=== PATIENT | male | born 1945 | race Caucasian/White ===

== ENCOUNTER 2016-05-30 09:35 | Emergency (ER) | payer OTHER ==
[~2016-05-30] VITALS: Ht 177.8 cm; Wt 113.3 kg
[~2016-05-30 09:35] MED LIST: DOXY100C2 PO; FLUT0.0529 NAE; INSU1INJ7 SC; LEVO88TA3 PO; LORA-741 PO; LOSA25TA18 PO; LPT10 PO; METF-383 PO; TRAM-10 PO
[2016-05-30 09:38] VITALS: BP 159/93; PULSE 78; TEMP 36.4; O2SAT 96; Ht 177.8 cm; Wt 113.3 kg
--- NOTE | 2016-05-30 09:53 | EMERGENCY ROOM VISIT NOTE ---
History Report prepared by Donna: Raghav Naik Under the Supervision of: Dr. Geena Peacock M.D. First contact with patient: 09:42 Chief Complaint: MEDICATION REFILL REQUEST Stated Complaint: REFILL OF MEDICATION History of Present Illness The patient is a 70 year old male who presents to the Emergency Room with a request for a refill of Metformin 850 mg PO. He ran out of his medication today. The patient is in the emergency department today due to a disagreement with his PCP. He then got a new PCP and got more medications, but they denied him a refill of his previous medication. He denies any other complaints. Source of History: patient Onset: today Position: other Quality: other (medication refill) Note: The patient denies any abnormal symptoms. Review of Systems See HPI for pertinent positives & negatives. A total of 10 systems reviewed and were otherwise negative. Past Medical & Surgical Medical Problems: (1) Asthma, Unspecified (2) Diab Savannah Wo Compl, Type Ii Or Unspec Type, Not Uncntrld (3) Hypertension Nos (4) Left leg cellulitis Family History Cancer Diabetes mellitus Social History Smoking Status: Current Every Day Smoker Alcohol Use: occasionally Marital Status: Housing Status: lives with significant other Occupation Status: retired Current/Historical Medications Scheduled Atorvastatin (Atorvastatin Calcium), 10 MG PO DAILY Doxycycline Hyclate (Vibramycin), 100 MG PO BID Fluticasone Propionate (Nasal) (Flonase), 2 SPRAYS OPAL DAILY Insulin Glargine (Lantus), 50 SC AMPM Losartan Potassium (Cozaar), 25 MG PO DAILY Metformin Hcl (Glucophage), 850 MG PO TIDM Scheduled PRN Lorazepam (Ativan), 0.5 MG PO BID PRN for anxiety Tramadol (Ultram), 1 TAB PO Q6H PRN for Pain Miscellaneous Medications Levothyroxine Sodium (Levothyroxine Sodium) Allergies Coded Allergies: Lisinopril (Verified Adverse Reaction, Unknown, Erectile Dysfunction, 02/11) Physical Exam Vital Signs Date Time Temp Pulse Resp B/P Pulse Ox O2 Delivery O2 Flow Rate FiO2 05/30/16 09:38 36.4 78 20 159/93 96 Room Air Physical Exam CONSTITUTIONAL: No distress HEENT: No icterus, moist mucous membranes NECK: No meningismus, trachea is midline. CARDIOVASCULAR: Regular rate, normal perfusion RESPIRATORY: Unlabored breathing. Clear to auscultation. GASTROINTESTINAL: Non-tender GENITOURINARY: No flank tenderness MUSCULOSKELETAL: Full range of motion NEUROLOGIC: No acute gross focal deficits. PSYCHIATRIC: Normal affect SKIN: Normal for ethnicity. Medical Decision & Procedures ED Course 0942: Past medical records reviewed. The patient was evaluated in room A9. A complete history and physical examination was performed. 1000: Upon reexamination the patient is resting. I discussed results and treatment plan with the patient. He verbalizes agreement and understanding. The patient is ready for discharge. Medical Decision Differential diagnoses include but are not limited to; medication refill. 70-year-old presents into the emergency room for medication refill on his metformin. He states he has follow-up with a primary care doctor in June after recently leaving a different primary care doctor but needed an interim assistance. I personally called [email or web address] and for patient's prescription and recently one-month supply. Patient otherwise feels well has no complaints with negative review of systems and understands to follow-up with his primary doctor. Impression Primary Impression: Medication refill Scribe Attestation The scribe's documentation has been prepared under my direction and personally reviewed by me in its entirety. I confirm that the note above accurately reflects all work, treatment, procedures, and medical decision making performed by me. Departure Information Dispostion Home / Self-Care Referrals Kofi Chavez D.O.[facility].Med. (PCP) Forms HOME CARE DOCUMENTATION FORM, IMPORTANT VISIT INFORMATION, WORK / SCHOOL INSTRUCTIONS Patient Instructions A Signature Page, My [facility] Additional Instructions Please f/u with your doctor for future refills
[2016-09-03] MEDS ORDERED: NAPR-1169 PO (08:02)
[2016-09-03] MEDS ORDERED: MULT-506 PO (08:02)
[2016-09-03] MEDS ORDERED: CEPH500C2 PO (08:02)
[2016-09-03] MEDS ORDERED: INSHRIE SC (08:02)
[2016-09-03] MEDS ORDERED: ASPI81TA28 PO (08:02)
[2016-09-03] MEDS ORDERED: ATEN50TA8 PO (08:02)
[2016-09-03] MEDS ORDERED: BUSP5TAB59 PO (08:02)
[2016-09-03] MEDS ORDERED: FLAX10007 PO (08:02)
== END 2016-05-30 09:56 | disposition home or self-care (01) ==
LOC: C.EDB 09:37 → C.EDA 09:56
DX: Z76.0 Encounter for issue of repeat prescription (principal); I10 Essential (primary) hypertension; E11.9 Type 2 diabetes mellitus without complications; J45.909 Unspecified asthma, uncomplicated; F17.200 Nicotine dependence, unspecified, uncomplicated; Z86.19 Personal history of other infectious and parasitic diseases; Z79.4 Long term (current) use of insulin; Z79.899 Other long term (current) drug therapy; Z88.8 Allergy status to other drugs, medicaments and biological substances; Z80.9 Family history of malignant neoplasm, unspecified; Z83.3 Family history of diabetes mellitus

== ENCOUNTER → 2016-06-25 | Outpatient (CLI) | payer OTHER ==
[~2016-06-25] MED LIST changes: +ASPI81TA28 PO; +ATEN50TA8 PO; +BUSP5TAB59 PO; +CEPH500C2 PO; +FLAX10007 PO; +INSHRIE SC; +MULT-506 PO; +NAPR-1169 PO
[2016-06-25 17:47] LABS: ALT/SGPT 37 U/L (12-78); BLOOD UREA NITROGEN 18 mg/dl (7-18); BUN/CREATININE RATIO 16.2 (10-20); CALCIUM 8.3 mg/dl (8.5-10.1); CARBON DIOXIDE 21 mmol/L (21-32); CHLORIDE 112 mmol/L (98-107); CHOLESTEROL 113 mg/dl (0-200); GLUCOSE 176 mg/dl (70-99); POTASSIUM 4.4 mmol/L (3.5-5.1); SODIUM 144 mmol/L (136-145)
[2016-06-25 17:50] LABS: BASO % 0.8 %; BASO ABS # 0.04 K/uL (0-0.2); EOS % 4.2 %; HEMATOCRIT 41.8 % (42-52); IG% 0.2 %; LYMPH % 24.6 %; LYMPH ABS # 1.23 K/uL (1.2-3.4); MEAN CELL VOLUME 96.8 fL (80-100); MEAN CORPUSCULAR HEMOGLOBIN 34.7 pg (25-34); MEAN CORPUSCULAR HGB CONC 35.9 g/dl (32-36); MEAN PLATELET VOLUME 12.1 fL (7.4-10.4); MONO % 6.6 %; NEUT % 63.6 %; PLATELET COUNT 88 K/uL (130-400); RED BLOOD COUNT 4.32 M/uL (4.7-6.1); WHITE BLOOD COUNT 4.99 K/uL (4.8-10.8)
[2016-06-25 17:58] LABS: ALB/GLOB RATIO 1.1 (0.9-2); ALKALINE PHOSPHATASE 65 U/L (45-117); AST/SGOT 32 U/L (15-37); CHOLESTEROL/HDL RATIO 2.4; HDL CHOLESTEROL 47 mg/dl; LDL CHOLESTEROL CALCULATED 38 mg/dl; TRIGLYCERIDES 139 mg/dl (0-150); VERY LOW DENSITY LIPOPROT CALC 28 mg/dl
[2016-06-25 18:06] LABS: COMPLETE YES
[2016-06-26 06:40] LABS: ESTIMATED AVERAGE GLUCOSE 117 mg/dl; HA1C FLAG Normal (Normal)
== END | disposition home or self-care (01) ==
LOC: C.LABBC 14:54
PROVIDERS: ATTEND Family Medicine
DX: E11.9 Type 2 diabetes mellitus without complications (principal); I10 Essential (primary) hypertension; Z13.0 Encounter for screening for diseases of the blood and blood-forming organs and certain disorders involving the immune mechanism; Z11.59 Encounter for screening for other viral diseases

== ENCOUNTER → 2016-06-29 | Outpatient (CLI) | payer OTHER ==
--- NOTE | 2016-06-29 08:25 | DIAGNOSTIC IMAGING REPORT ---
ULTRASOUND OF THE ABDOMINAL AORTA CLINICAL HISTORY: Aneurysm screening. Smoking history. COMPARISON STUDY: No priors. TECHNIQUE: Multiple bill scale, color Doppler, and spectral Doppler sonograms of the abdominal aorta and iliac arteries are performed. Images are reviewed in the transverse and longitudinal planes. The examination is degraded by large body habitus. FINDINGS: There is minimal atherosclerotic irregularity noted throughout the abdominal aorta. The proximal abdominal aorta is not well visualized. The mid abdominal aorta measures 1.9 x 1.8 cm (AP times transverse) and the distal abdominal aorta measures 1.8 x 2.0 cm. The right common iliac artery measures up to 1.4 cm and the left common iliac artery measures up to 1.4 cm. Normal flow and spectral Doppler waveforms are seen within the aorta and pelvic arteries. Velocities within the abdominal aorta measure up to 126 cm/s. IMPRESSION: There is no sonographic evidence of aneurysm in the visualized abdominal aorta. Electronically signed by: Ankur Valencia M.D. 06/29/2016 8:23 AM Dictated Date/Time: 06/29/2016 8:21 AM
== END | disposition home or self-care (01) ==
LOC: C.ULTR 07:58
PROVIDERS: ATTEND Family Medicine
DX: F17.200 Nicotine dependence, unspecified, uncomplicated (principal); Z13.6 Encounter for screening for cardiovascular disorders

== ENCOUNTER → 2016-09-01 | Outpatient (CLI) | payer OTHER ==
[~2016-09-01] MED LIST changes: +INSDGI SC; -TRAM-10 PO
== END | disposition home or self-care (01) ==
LOC: C.LABBC 10:30
PROVIDERS: ATTEND Physician Assistant
DX: L97.909 Non-pressure chronic ulcer of unspecified part of unspecified lower leg with unspecified severity (principal)

== ENCOUNTER → 2016-10-08 | Outpatient (CLI) | payer OTHER ==
[~2016-10-08] MED LIST changes: -CEPH500C2 PO; -DOXY100C2 PO; -LORA-741 PO
[2016-10-08 14:26] LABS: RATIO 7.7 mcg/mg (0-30.0)
== END | disposition home or self-care (01) ==
LOC: C.LABBC 11:22
PROVIDERS: ATTEND Family Medicine
DX: E11.9 Type 2 diabetes mellitus without complications (principal); D69.6 Thrombocytopenia, unspecified

== ENCOUNTER → 2016-11-04 | Outpatient (CLI) | payer OTHER ==
[2016-11-04 13:44] LABS: HEMATOCRIT 40.6 % (42-52); MEAN CELL VOLUME 97.8 fL (80-100); MEAN CORPUSCULAR HGB CONC 34.7 g/dl (32-36); RED BLOOD COUNT 4.15 M/uL (4.7-6.1); WHITE BLOOD COUNT 4.49 K/uL (4.8-10.8)
[2016-11-04 13:56] LABS: MEAN PLATELET VOLUME 11.4 fL (7.4-10.4); PLATELET COUNT 92 K/uL (130-400)
[2016-11-04 14:31] LABS: BASO % 0.4 %; BASO ABS # 0.02 K/uL (0-0.2); COMPLETE YES; EOS % 5.8 %; LYMPH % 25.4 %; LYMPH ABS # 1.14 K/uL (1.2-3.4); MONO % 9.8 %; NEUT % 58.6 %
== END | disposition home or self-care (01) ==
LOC: C.LABBC 11:16
PROVIDERS: ATTEND Family Medicine
DX: D69.6 Thrombocytopenia, unspecified (principal)

== ENCOUNTER → 2017-02-12 | Day surgery (SDC) | payer OTHER ==
[2017-01-27 13:44] VITALS: Ht 177.8 cm; Wt 113.6 kg
[~2017-02-12] VITALS: Ht 177.8 cm; Wt 113.6 kg
[~2017-02-12] MED LIST changes: +LIDOCAINE HCL 2% 2 ML VIAL (20MG/ML) ONE; +MIDAZOLAM HCL 1 MG/ML 2ML VIAL ONE; +PROPOFOL IV EMULSION 10 MG/ML 20 ML VIAL IV ONE
--- NOTE | 2017-02-12 08:45 | Endo History and Physical ---
History & Physical Date of Service: Feb 12, 2017. Chief Complaint: SCREENING Referring Physician: LUIS KIMBROUGH PA-C History of Present Illness 71 yo CM who presents for screening colonoscopy. Past Surgical History Hx Cardiac Surgery: No Hx Internal Defibrillator: No Hx Pacemaker: No Hx Abdominal Surgery: Yes (UMBILICAL HERNIA REPAIR WITH MESH) Hx of Implantable Prosthesis: No Hx Post-Op Nausea and Vomiting: No Hx Cancer Surgery: No Hx Thoracic Surgery: No Hx Orthopedic: No Hx Urinary Tract Surgery: No Family History None Social History Smoking Status: Current Every Day Smoker Hx Substance Use: No Hx Alcohol Use: Yes (1-2 DRINKS/NIGHT) Allergies Coded Allergies: Lisinopril (Verified Adverse Reaction, Unknown, Erectile Dysfunction, ) Current Medications Reported Home Medications Medications Dose Route/Sig Max Daily Dose Days Date Category Dose Instructions Multivitamin (Multivitamins) Tab 1 Tab PO QAM 09/03/16 Reported Flax Seed Oil (Flaxseed (Linseed)) 1,000 Mg Cap 1 Cap PO QAM 09/03/16 Reported Naprosyn (Naproxen) 500 Mg Tab 500 Mg PO BID PRN 09/03/16 Reported Humulin R (Insulin Human Regular) 100 Units/Ml Susp 30 Units SC BID 09/03/16 Reported +SLIDING SCALE Buspirone Hcl 5 Mg Tab 1 Tab PO BID PRN 09/03/16 Reported Tenormin (Atenolol) 50 Mg Tab 50 Mg PO QPM 09/03/16 Reported Aspirin Ec (Aspirin) 81 Mg Tab 81 Mg PO QPM 09/03/16 Reported Glucophage (Metformin Hcl) 850 Mg Tab 850 Mg PO BIDM 11/08/15 Reported Levothyroxine Sodium 88 Mcg Tab 1 Tab PO QAM 11/08/15 Reported Flonase (Fluticasone Propionate (Nasal)) 50 Mcg/Act Spr 2 Sprays OPAL QPM 04/04/14 Reported Atorvastatin Calcium (Atorvastatin) 10 Mg Tab 10 Mg PO QAM 04/04/14 Reported Cozaar (Losartan Potassium) 25 Mg Tab 25 Mg PO QAM 04/04/14 Reported Lantus (Insulin Glargine) 100 Unit/ Inj 40 Units SC AMPM 11/17/11 Reported Vital Signs Weight (Kilograms): 113.64 Height (Feet): 5 Height (Inches): 10 Date Time Temp Pulse Resp B/P (MAP) Pulse Ox O2 Delivery O2 Flow Rate FiO2 02/12/17 08:35 36.8 76 20 151/83 (105) 93 Room Air Physical Exam General Appearance: WD/WN, no apparent distress Respiratory/Chest: Auscultation: breath sounds normal Cardiovascular: Heart Auscultation: RRR Abdomen: Bowel Sounds: normal Inspection & Palpation: soft, non-distended, no tenderness, guarding & rebound Assessment and Plan Assessment: 71 yo CM who presents for screening colonoscopy. Plan: Proceed with colonoscopy.
--- NOTE | 2017-02-12 10:19 | GI REPORT ---
Procedure Date: 02/12/2017 9:49 AM Procedure: Colonoscopy Indications: Screening for colorectal malignant neoplasm Medicines: Monitored Anesthesia Care Complications: No immediate complications. Estimated Blood Loss: Estimated blood loss: none. Procedure: Pre-Anesthesia Assessment: - Prior to the procedure, a History and Physical was performed, and patient medications and allergies were reviewed. The patient's tolerance of previous anesthesia was also reviewed. The risks and benefits of the procedure and the sedation options and risks were discussed with the patient. All questions were answered, and informed consent was obtained. Prior Anticoagulants: The patient has taken aspirin, last dose was 2 days prior to procedure. ASA Grade Assessment: III - A patient with severe systemic disease. After reviewing the risks and benefits, the patient was deemed in satisfactory condition to undergo the procedure. After I obtained informed consent, the scope was passed under direct vision. Throughout the procedure, the patient's blood pressure, pulse, and oxygen saturations were monitored continuously. The scope was introduced through the anus and advanced to the terminal ileum. The colonoscopy was performed without difficulty. The patient tolerated the procedure well. The quality of the bowel preparation was good. The appendiceal orifice and the rectum were photographed. Findings: Four sessile polyps were found in the transverse colon and in the ascending colon. The polyps were 4 to 7 mm in size. These polyps were removed with a hot snare. Resection and retrieval were complete. Multiple small-mouthed diverticula were found in the sigmoid colon. Non-bleeding internal hemorrhoids were found during retroflexion. The hemorrhoids were small. Impression: - Four 4 to 7 mm polyps in the transverse colon and in the ascending colon, removed with a hot snare. Resected and retrieved. - Diverticulosis in the sigmoid colon. - Non-bleeding internal hemorrhoids. Recommendation: - Resume previous diet. - Continue present medications. - Repeat colonoscopy for surveillance based on pathology results. - Return to primary care physician as previously scheduled. Aime Vyas, DO 02/12/2017 10:18:15 AM This report has been signed electronically. Note Initiated On: 02/12/2017 9:49 AM I attest to the content of the Intraoperative Record and orders documented therein, exceptions below
--- NOTE | 2017-02-12 10:22 | Anesthesiology Progress Note ---
Anesthesia Post Op Note Date & Time Feb 12, 2017 at 10:22 Vital Signs Pain Intensity: 0 Vital Signs Past 12 Hours Date Time Temp Pulse Resp B/P (MAP) Pulse Ox O2 Delivery O2 Flow Rate FiO2 02/12/17 10:14 68 20 108/92 (97) 96 Room Air 02/12/17 08:35 36.8 76 20 151/83 (105) 93 Room Air Notes Mental Status: alert / awake / arousable, participated in evaluation Pt Amnestic to Procedure: Yes Nausea / Vomiting: adequately controlled Pain: adequately controlled Airway Patency, RR, SpO2: stable & adequate BP & HR: stable & adequate Hydration State: stable & adequate Anesthetic Complications: no major complications apparent
--- NOTE | 2017-02-12 10:28 | Discharge Instructions ---
Endoscopy Patient Instructions Date / Procedure(s) Performed Feb 12, 2017. Colonoscopy Allergy Information Coded Allergies: Lisinopril (Verified Adverse Reaction, Unknown, Erectile Dysfunction, ) Discharge Date / Findings Feb 12, 2017. Colon polyps Diverticulosis Internal hemorrhoids Medication Instructions Stopped Medication(s): ASPIRIN 02/11/17 OK to resume all medications today as prescribed Reported Home Medications Medications Dose Route/Sig Max Daily Dose Days Date Category Dose Instructions Multivitamin (Multivitamins) Tab 1 Tab PO QAM 09/03/16 Reported Flax Seed Oil (Flaxseed (Linseed)) 1,000 Mg Cap 1 Cap PO QAM 09/03/16 Reported Naprosyn (Naproxen) 500 Mg Tab 500 Mg PO BID PRN 09/03/16 Reported Humulin R (Insulin Human Regular) 100 Units/Ml Susp 30 Units SC BID 09/03/16 Reported +SLIDING SCALE Buspirone Hcl 5 Mg Tab 1 Tab PO BID PRN 09/03/16 Reported Tenormin (Atenolol) 50 Mg Tab 50 Mg PO QPM 09/03/16 Reported Aspirin Ec (Aspirin) 81 Mg Tab 81 Mg PO QPM 09/03/16 Reported Glucophage (Metformin Hcl) 850 Mg Tab 850 Mg PO BIDM 11/08/15 Reported Levothyroxine Sodium 88 Mcg Tab 1 Tab PO QAM 11/08/15 Reported Flonase (Fluticasone Propionate (Nasal)) 50 Mcg/Act Spr 2 Sprays OPAL QPM 04/04/14 Reported Atorvastatin Calcium (Atorvastatin) 10 Mg Tab 10 Mg PO QAM 04/04/14 Reported Cozaar (Losartan Potassium) 25 Mg Tab 25 Mg PO QAM 04/04/14 Reported Lantus (Insulin Glargine) 100 Unit/ Inj 40 Units SC AMPM 11/17/11 Reported Provider Instructions Activity Restrictions - No exercising or heavy lifting for 24 hours. - Do not drink alcohol the day of the procedure. - Do not drive a car or operate machinery until the day after the procedure. - Do not make any important decisions or sign important papers in 24 hours after the procedure. Following Day: - Return to full activity which may include returning to work/school. Diet Start your diet with liquids and light foods (jello, soup, juice, toast). Then eat your usual diet if not nauseated. Treatment For Common After Affects For mild abdominal pain, bloating, or excessive gas: - Rest - Eat lightly - Lie on right side Follow-Up Information Follow-up with LUIS KIMBROUGH PA-C as scheduled Anesthesia Information What You Should Know You have had a procedure that required some medicine to reduce anxiety and discomfort. This treatment is called moderate sedation. After receiving the treatment, you may be sleepy, but you will be able to breathe on your own. The effects of the treatment may last for several hours. Follow these instructions along with Activity/Diet recommendations noted above: * Do NOT do anything where dizziness or clumsiness would be dangerous. * Rest quietly at home today, then you can be up and about tomorrow. * Have a responsible person stay with you the rest of today. * You may have had an I.V. today. If so, you may take the dressing off later today. Recommendations Call your doctor if: * Trouble breathing * Continuous vomiting for more than 24 hours * Temperature above 101 degrees * Severe abdominal pain or bloating * Pain not relieved by pain medicine ordered * There is increased drainage or redness from any incision * A large amount of rectal bleeding greater than 2-3 tablespoons. (If you had a polyp/s removed or have hemorrhoids, a small amount of blood - from the rectum is to be expected.) * You have any unanswered questions or concerns. IN THE EVENT OF A SERIOUS EMERGENCY, GO TO THE NEAREST EMERGENCY ROOM Your discharge instructions were prepared by provider Aime Vyas. Patient Instructions Signature Page Vijay Vishnu Patient (or Guardian) Signature/Date: I have read and understand the instructions given to me by my caregivers. Caregiver/RN/Doctor Signature/Date: The above-named patient and/or guardian has received patient instructions on this date. + Original Patient Signature Page (only) stays with chart. Please make copy for patient.
[2017-02-12 10:45] VITALS: BP 129/55; PULSE 61; O2SAT 97
== END | disposition home or self-care (01) ==
LOC: C.GI 08:14
PROVIDERS: ATTEND Internal Medicine
DX: Z12.11 Encounter for screening for malignant neoplasm of colon (principal); D12.2 Benign neoplasm of ascending colon; D12.3 Benign neoplasm of transverse colon; K64.8 Other hemorrhoids; I10 Essential (primary) hypertension; E11.9 Type 2 diabetes mellitus without complications; K57.31 Diverticulosis of large intestine without perforation or abscess with bleeding; E66.9 Obesity, unspecified; F17.200 Nicotine dependence, unspecified, uncomplicated; Z79.4 Long term (current) use of insulin; Z79.82 Long term (current) use of aspirin

== ENCOUNTER 2017-03-05 16:03 | Emergency (ER) | payer OTHER ==
[~2017-03-05] VITALS: Ht 177.8 cm; Wt 116.4 kg
[~2017-03-05 16:03] MED LIST changes: -INSDGI SC; -LIDOCAINE HCL 2% 2 ML VIAL (20MG/ML) ONE; -MIDAZOLAM HCL 1 MG/ML 2ML VIAL ONE; -PROPOFOL IV EMULSION 10 MG/ML 20 ML VIAL IV ONE
[2017-03-05 16:09] VITALS: BP 144/90; PULSE 84; TEMP 36.9; O2SAT 95; Ht 177.8 cm; Wt 116.4 kg
[2017-03-05] MEDS ORDERED: INSDGI SC (16:53)
--- NOTE | 2017-03-05 17:00 | EMERGENCY ROOM VISIT NOTE ---
ED Visit Note First contact with patient: 16:15 The patient was seen and examined with Sundar Royal PA-C. I agree with the history, physical and findings. Please see the note for disposition and details. The patient has had a rash in his lower extremity for many months. It is not cellulitic. There is no drainage. No abscess. He was given triamcinolone to use twice a day and will have follow-up next week in the primary clinic. He will come back if he worsens.
--- NOTE | 2017-03-05 17:02 | EMERGENCY ROOM VISIT NOTE ---
ED Visit Note First contact with patient: 16:15 CHIEF COMPLAINT: Rash on left lower leg times several months HISTORY OF PRESENT ILLNESS: Patient is a 71-year-old white male who presents to emergency department for evaluation of a rash to his left lower leg. He states that it has been there for "months." He describes it as itchy and painful. He states that the area was a little red, but not problematic, and then he struck his calderon on furniture in his bedroom, which caused a wound, that was poorly healing. He was seen at the wound care center from mid August through almost the end of October for management of the nonhealing wound. Wound healed up well, but the patient states that he had the rash and nothing was done about it for the entire time that he was in by the wound care center. The wound was treated with Aquacel and 1 layer Tubigrip. Patient has tried multiple topical agents including antibiotic ointment and antifungal creams. He is also applying Aquaphor lotion to the area. He states that the area is spreading. He states that it gets worse when he scratches it. He notes symptoms dry, flaking skin centrally. REVIEW OF SYSTEMS: Review of systems as per HPI. All other systems reviewed were negative. At least 6 systems reviewed. PMH: Electronic medical records are reviewed and summarized as above/below. See Problem List. SOCIAL HISTORY: Patient lives at home. PHYSICAL EXAM: Vital Signs: Reviewed Nurse's notes. CONSTITUTIONAL: Patient is a well-appearing 71-year-old white male who is awake and alert and in no acute distress. INTEGUMENTARY: Examination of the left anterior lower leg show a slightly raised, erythematous, blanchable rash. There is an area where there is some scale centrally, which removed easily. No petechiae, vesicles or blistering or bullae appreciated. No satellite lesions. He has 2+ pitting edema noted in the ankles and the pretibial area. The calves are soft and nontender. EMERGENCY DEPARTMENT COURSE: Patient was seen and assessed as above by myself and Dr. Ramos. Etiology of the rash is unclear at this time. Rash does not appear consistent with a bacterial infectious process such as cellulitis. It does not appear to have a fungal component. He has not tried any steroid therapy. He was given a tube of triamcinolone 0.1% cream. He will apply this to the affected area twice daily. He has a follow-up appointment with his PCP for next week. Medication reconciliation: I attest that I have personally reviewed the patient' s current medication list. Blood pressure screening : Patient was found to have normal blood pressure on screening and does not require follow-up. Problem List Medical Problems: (1) Asthma, Unspecified Status: Chronic (2) Diab Savannah Wo Compl, Type Ii Or Unspec Type, Not Uncntrld Status: Chronic (3) Encounter for medication refill Status: Resolved (4) Fever Status: Resolved (5) Hyperlipidemia, Unspecified Status: Chronic (6) Hypertension Nos Status: Chronic (7) Hypothyroidism, Unspecified Status: Chronic (8) Left leg cellulitis Status: Resolved (9) Lyme disease Status: Resolved (10) Medication refill Status: Resolved Current/Historical Medications Scheduled Aspirin (Aspirin Ec), 81 MG PO QPM Atenolol (Tenormin), 50 MG PO QPM Atorvastatin (Atorvastatin Calcium), 10 MG PO QAM Flaxseed (Linseed) (Flax Seed Oil), 1 CAP PO QAM Insulin Glargine (Lantus), 40 UNITS SC AMPM Insulin Human Regular (Humulin R), UNITS SC BID Levothyroxine Sodium (Levothyroxine Sodium), 1 TAB PO QAM Losartan Potassium (Cozaar), 25 MG PO QAM Metformin Hcl (Glucophage), 850 MG PO BIDM Multivitamin (Multivitamin), 1 TAB PO QAM Scheduled PRN Buspirone Hcl (Buspirone Hcl), 1 TAB PO BID PRN for Anxiety Naproxen (Naprosyn), 500 MG PO BID PRN for Pain Allergies Coded Allergies: Lisinopril (Verified Adverse Reaction, Unknown, Erectile Dysfunction, ) Vital Signs Date Time Temp Pulse Resp B/P (MAP) Pulse Ox O2 Delivery O2 Flow Rate FiO2 03/05/17 16:09 36.9 84 18 144/90 95 Room Air Medications Administered Medications (Trade) Dose Ordered Sig/Krystian Route Start Time Stop Time Status Last Admin Dose Admin Triamcinolone Acetonide (Triamcinolone Acet 0.1% Crm) 1 appln BID ONCE EXT 03/05/17 21:00 03/05/17 21:00 DC 03/05/17 17:28 1 APPLN Departure Information Impression Primary Impression: Rash Referrals No Doctor, Assigned (PCP) Patient Instructions My [facility] Additional Instructions Wash area daily with mild soap and water. Apply a thin layer of triamcinolone cream to the affected area twice daily. Follow-up with your primary care provider as you have scheduled next week. Return to the ED for worsening symptoms.
[2017-03-05] MEDS ORDERED: TRIAMCINOLONE ACET 0.1% CR 80 GM TUBE EXT ONE (21:00)
== END 2017-03-05 17:31 | disposition home or self-care (01) ==
LOC: C.EDB 16:03 → C.EDD 17:31
DX: R21 Rash and other nonspecific skin eruption (principal); E78.5 Hyperlipidemia, unspecified; E03.9 Hypothyroidism, unspecified; I10 Essential (primary) hypertension; E11.9 Type 2 diabetes mellitus without complications; J45.909 Unspecified asthma, uncomplicated; Z86.19 Personal history of other infectious and parasitic diseases; Z79.4 Long term (current) use of insulin; Z79.82 Long term (current) use of aspirin; Z79.899 Other long term (current) drug therapy

== ENCOUNTER → 2017-09-24 | Outpatient (CLI) | payer OTHER ==
[~2017-09-24] MED LIST changes: -FLUT0.0529 NAE; +INSDGI SC; -INSU1INJ7 SC
--- NOTE | 2017-09-24 10:07 | DIAGNOSTIC IMAGING REPORT ---
L HAND MIN 3 VIEWS ROUTINE CLINICAL HISTORY: Left first finger pain. COMPARISON: None FINDINGS: Alignment of the left hand is anatomic. There is moderate joint space narrowing with extensive osteophytosis of the interphalangeal joint of the left thumb. There is also moderate arthritis within the left first digit metacarpophalangeal joint. There is no fracture. There is moderate arthritis within several additional articulations of the left hand, including the second and third digit MCP joints. IMPRESSION: 1. 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 Moderate arthritis of the left first metacarpophalangeal joint. 2. No acute fracture. Electronically signed by: Florentino Salomon M.D. 09/24/2017 10:06 AM Dictated Date/Time: 09/24/2017 9:59 AM
[2017-09-24 11:29] LABS: ALBUMIN 3.4 gm/dl (3.4-5.0); ALT/SGPT 46 U/L (12-78); AST/SGOT 46 U/L (15-37); BLOOD UREA NITROGEN 16 mg/dl (7-18); CALCIUM 8.8 mg/dl (8.5-10.1); CARBON DIOXIDE 23 mmol/L (21-32); CREATININE 1.15 mg/dl (0.60-1.40); GLUCOSE 206 mg/dl (70-99); POTASSIUM 4.8 mmol/L (3.5-5.1); SODIUM 137 mmol/L (136-145)
[2017-09-24 11:36] LABS: HEMOGLOBIN A1C 8.8 % (4.5-5.6)
[2017-09-24 11:39] LABS: ALKALINE PHOSPHATASE 80 U/L (45-117); CHOLESTEROL 145 mg/dl (0-200); LDL CHOLESTEROL CALCULATED 65 mg/dl; TOTAL PROTEIN 7.2 gm/dl (6.4-8.2)
== END | disposition home or self-care (01) ==
LOC: C.LABBC 09:00
PROVIDERS: ATTEND Nurse Practitioner Adult Health
DX: M79.645 Pain in left finger(s) (principal); E11.9 Type 2 diabetes mellitus without complications; I10 Essential (primary) hypertension; E78.5 Hyperlipidemia, unspecified; E03.9 Hypothyroidism, unspecified

== ENCOUNTER → 2017-10-06 | Outpatient (CLI) | payer OTHER ==
--- NOTE | 2017-10-06 11:47 | DIAGNOSTIC IMAGING REPORT ---
ULTRASOUND RIGHT UPPER QUADRANT ABDOMEN CLINICAL HISTORY: Elevated hepatic transaminases. COMPARISON STUDY: No priors. TECHNIQUE: Real-time, grayscale, and color flow sonography of the right upper quadrant of the abdomen was performed. Images are reviewed in the transverse and longitudinal planes. The examination is degraded by large body habitus. FINDINGS: Liver: The liver is enlarged, measuring over 22 cm in length. The liver demonstrates heterogeneously increased echotexture consistent with severe hepatic steatosis. Note that this degrades acoustic penetration of liver. There is no intrahepatic biliary ductal dilatation. The main portal vein is patent. Gallbladder: The gallbladder is normal in appearance. No gallstones are identified. There is no gallbladder wall thickening or pericholecystic fluid. A sonographic Landrum's sign is reportedly absent. The common bile duct measures up to 0.5 cm in diameter. Pancreas: Normal well visualized due to overlying bowel gas. Right kidney: Survey images of the right kidney demonstrate normal size and echotexture. There is no hydronephrosis. A 5 mm shadowing nonobstructing calculus is identified in the right lower pole. Ascites: None. IMPRESSION: 1. Hepatomegaly and severe hepatic steatosis. 2. Nonobstructing right renal calculus. 3. No gallstones are identified. Electronically signed by: Ankur Valencia M.D. 10/06/2017 11:46 AM Dictated Date/Time: 10/06/2017 11:45 AM
== END | disposition home or self-care (01) ==
LOC: C.ULTR 11:03
PROVIDERS: ATTEND Nurse Practitioner Adult Health
DX: K76.0 Fatty (change of) liver, not elsewhere classified (principal); N20.0 Calculus of kidney; R74.8 Abnormal levels of other serum enzymes

== ENCOUNTER → 2017-12-10 | Outpatient (CLI) | payer OTHER ==
[~2017-12-10] MED LIST changes: +BUSP-8 PO; +FLUT0.15 NAE; +LEVO100T PO; +METF1000 PO; -NAPR-1169 PO; +NAPR-22 PO; +OMEP20CA9 PO; +OPTIRAY 320 IV PRN
--- NOTE | 2017-12-10 09:22 | DIAGNOSTIC IMAGING REPORT ---
CT (CHEST) THORAX WITH CT DOSE: 858.61 mGy.cm HISTORY: Cough R05 [id number] Former [id number] Abnormal chest [id number] TECHNIQUE: Multiaxial CT images of the chest were performed following the intravenous administration of contrast. A dose lowering technique was utilized adhering to the principles of ALARA. COMPARISON: Chest series 12/01/2017 FINDINGS: The thoracic aorta is normal in course and caliber. Mild stable cardiomegaly. No significant mediastinal or hilar adenopathy. Lungs are considered clear. Minimal bibasilar dependent atelectatic change. No significant parenchymal nodularity. Limited evaluation the upper abdomen demonstrates components of hepatic cirrhosis and upper abdominal varices. IMPRESSION: No significant abnormality identified within the chest. Minimal dependent bibasilar atelectatic change. 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 The above report was generated using voice recognition software. It may contain grammatical, syntax or spelling errors. Electronically signed by: Demetrius Martínez M.D. 12/10/2017 9:21 AM Dictated Date/Time: 12/10/2017 9:00 AM
== END | disposition home or self-care (01) ==
LOC: C.CTS 08:36
PROVIDERS: ATTEND Nurse Practitioner Adult Health
DX: R93.8 Abnormal findings on diagnostic imaging of other specified body structures (principal); Z87.891 Personal history of nicotine dependence; R05 Cough

== ENCOUNTER → 2017-12-21 | Day surgery (SDC) | payer OTHER ==
[2017-12-20 08:38] VITALS: BMI 35.0
[~2017-12-21] VITALS: Ht 177.8 cm; Wt 111.4 kg
[~2017-12-21] MED LIST changes: +FENTANYL CITRATE INJ 50 MCG/1 ML 2 ML VIAL ONE; -LEVO88TA3 PO; +LIDOCAINE HCL 2% 2 ML VIAL (20MG/ML) ONE; -METF-383 PO; -NAPR-22 PO; -OMEP20CA9 PO; -OPTIRAY 320 IV PRN; +PROPOFOL IV EMULSION 10 MG/ML 20 ML VIAL ONE; +SODIUM CHLORIDE 0.9% 500ML 500 ML IV ONE
[2017-12-21 11:21] VITALS: Ht 177.8 cm; Wt 111.4 kg
[2017-12-21 11:31] VITALS: TEMP 37
--- NOTE | 2017-12-21 12:12 | Endo History and Physical ---
History & Physical Date of Service: Dec 21, 2017. Chief Complaint: hx varices Referring Physician: BHAVESH Rushing History of Present Illness 72 yo CM who presents for EGD secondary to gastric varices. Past Surgical History Hx Cardiac Surgery: No Hx Internal Defibrillator: No Hx Pacemaker: No Hx Abdominal Surgery: Yes (UMBILICAL HERNIA REPAIR WITH MESH) Hx of Implantable Prosthesis: No Hx Post-Op Nausea and Vomiting: No Hx Cancer Surgery: No Hx Thoracic Surgery: No Hx Orthopedic: No Hx Urinary Tract Surgery: No Family History None Social History Smoking Status: Former Smoker Hx Substance Use: No Hx Alcohol Use: Yes (1-2 DRINKS/NIGHT (QUIT ONE MONTH AGO)) Allergies Coded Allergies: Lisinopril (Verified Adverse Reaction, Unknown, Erectile Dysfunction, 12/20) Current Medications Reported Home Medications Medications Dose Route/Sig Max Daily Dose Days Date Category Dose Instructions Flonase Allergy Relief (Fluticasone Propionate (Nasal)) 50 Mcg/Act Spr 2 Sprays OPAL DAILY 12/12/17 Reported Buspirone Hcl 10 Mg Tab 10 Mg PO BID 12/12/17 Reported STATES HE DOES NOT TAKE ALL THE TIME Glucophage (Metformin Hcl) 1,000 Mg Tab 1,000 Mg PO BIDM 12/12/17 Reported Synthroid (Levothyroxine Sodium) 100 Mcg Tab 100 Mcg PO QAM 12/12/17 Reported Lantus (Insulin Glargine) 100 Unit/Ml Inj 45 Units SC BID 03/05/17 Reported Multivitamin (Multivitamins) Tab 1 Tab PO QAM 09/03/16 Reported Flax Seed Oil (Flaxseed (Linseed)) 1,000 Mg Cap 1 Cap PO QAM 09/03/16 Reported Humulin R (Insulin Human Regular) 100 Units/Ml Susp 20-40 Units SC BID 09/03/16 Reported PER SLIDING SCALE Buspirone Hcl 5 Mg Tab 5 Mg PO BID PRN 09/03/16 Reported Tenormin (Atenolol) 50 Mg Tab 50 Mg PO QPM 09/03/16 Reported Aspirin Ec (Aspirin) 81 Mg Tab 81 Mg PO QPM 09/03/16 Reported Lipitor (Atorvastatin Calcium) 10 Mg Tab 10 Mg PO QAM 04/04/14 Reported Cozaar (Losartan Potassium) 25 Mg Tab 25 Mg PO QAM 04/04/14 Reported Vital Signs Weight (Kilograms): 111.36 Height (Feet): 5 Height (Inches): 10 Date Time Temp Pulse Resp B/P (MAP) Pulse Ox O2 Delivery O2 Flow Rate FiO2 12/21/17 11:31 37 62 20 130/73 (92) 95 Room Air Physical Exam General Appearance: WD/WN, no apparent distress Respiratory/Chest: Auscultation: breath sounds normal Cardiovascular: Heart Auscultation: RRR Abdomen: Bowel Sounds: normal Inspection & Palpation: soft, non-distended, no tenderness, guarding & rebound Assessment and Plan Assessment: 72 yo CM who presents for EGD secondary to gastric varices. Plan: Proceed with colonoscopy.
--- NOTE | 2017-12-21 13:08 | Discharge Instructions ---
Endoscopy Patient Instructions Date / Procedure(s) Performed Dec 21, 2017. EGD Allergy Information Coded Allergies: Lisinopril (Verified Adverse Reaction, Unknown, Erectile Dysfunction, 12/20) Discharge Date / Findings Dec 21, 2017. Duodenal ulcers Gastritis s/p biopsies Medication Instructions Stopped Medication(s): TOOK NOTHING OK to resume all medications today as prescribed Reported Home Medications Medications Dose Route/Sig Max Daily Dose Days Date Category Dose Instructions Flonase Allergy Relief (Fluticasone Propionate (Nasal)) 50 Mcg/Act Spr 2 Sprays OPAL DAILY 12/12/17 Reported Buspirone Hcl 10 Mg Tab 10 Mg PO BID 12/12/17 Reported STATES HE DOES NOT TAKE ALL THE TIME Glucophage (Metformin Hcl) 1,000 Mg Tab 1,000 Mg PO BIDM 12/12/17 Reported Synthroid (Levothyroxine Sodium) 100 Mcg Tab 100 Mcg PO QAM 12/12/17 Reported Lantus (Insulin Glargine) 100 Unit/Ml Inj 45 Units SC BID 03/05/17 Reported Multivitamin (Multivitamins) Tab 1 Tab PO QAM 09/03/16 Reported Flax Seed Oil (Flaxseed (Linseed)) 1,000 Mg Cap 1 Cap PO QAM 09/03/16 Reported Humulin R (Insulin Human Regular) 100 Units/Ml Susp 20-40 Units SC BID 09/03/16 Reported PER SLIDING SCALE Buspirone Hcl 5 Mg Tab 5 Mg PO BID PRN 09/03/16 Reported Tenormin (Atenolol) 50 Mg Tab 50 Mg PO QPM 09/03/16 Reported Aspirin Ec (Aspirin) 81 Mg Tab 81 Mg PO QPM 09/03/16 Reported Lipitor (Atorvastatin Calcium) 10 Mg Tab 10 Mg PO QAM 04/04/14 Reported Cozaar (Losartan Potassium) 25 Mg Tab 25 Mg PO QAM 04/04/14 Reported Provider Instructions Activity Restrictions - No exercising or heavy lifting for 24 hours. - Do not drink alcohol the day of the procedure. - Do not drive a car or operate machinery until the day after the procedure. - Do not make any important decisions or sign important papers in 24 hours after the procedure. Following Day: - Return to full activity which may include returning to work/school. Diet Start your diet with liquids and light foods (jello, soup, juice, toast). Then eat your usual diet if not nauseated. Treatment For Common After Affects For mild abdominal pain, bloating, or excessive gas: - Rest - Eat lightly - Lie on right side Follow-Up Information Follow-up with BHAVESH Rushing as scheduled Anesthesia Information What You Should Know You have had a procedure that required some medicine to reduce anxiety and discomfort. This treatment is called moderate sedation. After receiving the treatment, you may be sleepy, but you will be able to breathe on your own. The effects of the treatment may last for several hours. Follow these instructions along with Activity/Diet recommendations noted above: * Do NOT do anything where dizziness or clumsiness would be dangerous. * Rest quietly at home today, then you can be up and about tomorrow. * Have a responsible person stay with you the rest of today. * You may have had an I.V. today. If so, you may take the dressing off later today. Recommendations Call your doctor if: * Trouble breathing * Continuous vomiting for more than 24 hours * Temperature above 101 degrees * Severe abdominal pain or bloating * Pain not relieved by pain medicine ordered * There is increased drainage or redness from any incision * A large amount of rectal bleeding greater than 2-3 tablespoons. (If you had a polyp/s removed or have hemorrhoids, a small amount of blood - from the rectum is to be expected.) * You have any unanswered questions or concerns. IN THE EVENT OF A SERIOUS EMERGENCY, GO TO THE NEAREST EMERGENCY ROOM Your discharge instructions were prepared by provider Aime Vyas. Patient Instructions Signature Page Vijay Mares Patient (or Guardian) Signature/Date: I have read and understand the instructions given to me by my caregivers. Caregiver/RN/Doctor Signature/Date: The above-named patient and/or guardian has received patient instructions on this date. + Original Patient Signature Page (only) stays with chart. Please make copy for patient.
--- NOTE | 2017-12-21 13:14 | GI REPORT ---
Patient Name: Vijay Mares Procedure Date: 12/21/2017 12:09 PM Date of : 1945 Admit Type: Outpatient Age: 72 Gender: Male Attending MD: Aime Vyas DO Procedure: Upper GI endoscopy Providers: Aiem Vyas DO Referring MD: Martha Reynoso Indications: Abnormal CT of the GI tract Medicines: Monitored Anesthesia Care Complications: No immediate complications. Estimated Blood Loss: Estimated blood loss: none. Procedure: Pre-Anesthesia Assessment: - Prior to the procedure, a History and Physical was performed, and patient medications and allergies were reviewed. The patient's tolerance of previous anesthesia was also reviewed. The risks and benefits of the procedure and the sedation options and risks were discussed with the patient. All questions were answered, and informed consent was obtained. Prior Anticoagulants: The patient has taken aspirin, last dose was 1 day prior to procedure. ASA Grade Assessment: III - A patient with severe systemic disease. After reviewing the risks and benefits, the patient was deemed in satisfactory condition to undergo the procedure. After obtaining informed consent, the endoscope was passed under direct vision. Throughout the procedure, the patient's blood pressure, pulse, and oxygen saturations were monitored continuously. The scope was introduced through the mouth, and advanced to the second part of duodenum. The upper GI endoscopy was accomplished without difficulty. The patient tolerated the procedure well. Findings: The esophagus was normal. Localized mild inflammation characterized by erythema was found in the gastric antrum. Biopsies were taken with a cold forceps for histology. Few non-bleeding superficial duodenal ulcers with no stigmata of bleeding were found in the duodenal bulb. The largest lesion was 10 mm in largest dimension. Impression: - Normal esophagus. - Gastritis. Biopsied. - Multiple non-bleeding duodenal ulcers with no stigmata of bleeding. Recommendation: - Resume previous diet. - Use Prilosec (omeprazole) 20 mg PO BID. - Await pathology results. - Return to primary care physician as previously scheduled. Aime Vyas DO 12/21/2017 1:13:37 PM This report has been signed electronically. Note Initiated On: 12/21/2017 12:09 PM Number of Addenda: 0 I attest to the content of the Intraoperative Record and orders documented therein, exceptions below {[id number]}
[2017-12-21 13:40] VITALS: BP 137/73; PULSE 55; O2SAT 95
--- NOTE | 2017-12-21 14:04 | Anesthesiology Progress Note ---
Anesthesia Post Op Note Date & Time Dec 21, 2017 at 14:04 Vital Signs Pain Intensity: 0 Vital Signs Past 12 Hours Date Time Temp Pulse Resp B/P (MAP) Pulse Ox O2 Delivery O2 Flow Rate FiO2 12/21/17 13:40 55 20 137/73 (94) 95 Room Air 12/21/17 13:34 49 20 148/91 (110) 95 Room Air 12/21/17 13:13 50 20 144/78 (100) 97 Room Air 12/21/17 11:31 37 62 20 130/73 (92) 95 Room Air Notes Mental Status: alert / awake / arousable, participated in evaluation Pt Amnestic to Procedure: Yes Nausea / Vomiting: adequately controlled Pain: adequately controlled Airway Patency, RR, SpO2: stable & adequate BP & HR: stable & adequate Hydration State: stable & adequate Anesthetic Complications: no major complications apparent
== END | disposition home or self-care (01) ==
LOC: C.GI 11:00
PROVIDERS: ATTEND Internal Medicine
DX: R93.3 Abnormal findings on diagnostic imaging of other parts of digestive tract (principal); K29.50 Unspecified chronic gastritis without bleeding; K26.9 Duodenal ulcer, unspecified as acute or chronic, without hemorrhage or perforation; I10 Essential (primary) hypertension; E11.9 Type 2 diabetes mellitus without complications; E78.5 Hyperlipidemia, unspecified; E03.9 Hypothyroidism, unspecified; F41.8 Other specified anxiety disorders; F32.9 Major depressive disorder, single episode, unspecified; Z87.891 Personal history of nicotine dependence; Z79.84 Long term (current) use of oral hypoglycemic drugs; Z79.4 Long term (current) use of insulin; Z79.899 Other long term (current) drug therapy; Z88.8 Allergy status to other drugs, medicaments and biological substances

== ENCOUNTER 2018-01-15 14:31 | Emergency (ER) | payer OTHER ==
[~2018-01-15] VITALS: Ht 177.8 cm; Wt 115.6 kg
[~2018-01-15 14:31] MED LIST changes: -FENTANYL CITRATE INJ 50 MCG/1 ML 2 ML VIAL ONE; -LIDOCAINE HCL 2% 2 ML VIAL (20MG/ML) ONE; -PROPOFOL IV EMULSION 10 MG/ML 20 ML VIAL ONE; -SODIUM CHLORIDE 0.9% 500ML 500 ML IV ONE
[2018-01-15 14:53] VITALS: PULSE 63; TEMP 36.9; O2SAT 94; Ht 177.8 cm; Wt 115.6 kg
[2018-01-15] MEDS ORDERED: DICLOFENAC SOD 1% GEL 100 GM TUBE EXT STA (15:14)
--- NOTE | 2018-01-15 15:29 | EMERGENCY ROOM VISIT NOTE ---
ED Visit Note First contact with patient: 15:01 CHIEF COMPLAINT: Right upper extremity pain HISTORY OF PRESENT ILLNESS: This 72-year-old male patient presents to the emergency department, ambulatory, complaining of right upper arm soreness and redness since "weeks ago". The patient states he was here in the hospital when a nurse was unable to obtain IV access in the right upper extremity. He states there were several attempts made and he finally told the nurse to stop trying and insert the IV on the left. The patient did not ever have IV access established, and did not have any medications or fluids run through the IV. He states the redness of the extremity comes and goes, and earlier today it was much worse than it is at this time. There has been no drainage, and he states the redness does not seem to be spreading. He denies any recent fever, chills, nausea, vomiting, aches, or other constitutional symptoms. The patient has never experienced symptoms like this before. He did see his primary care provider proximally 1 month ago and had an ultrasound performed outpatient which was consistent with superficial phlebitis of the cephalic vein. REVIEW OF SYSTEMS: A 10 system review of systems was performed with positives and pertinent negatives listed in the history of present illness. All other systems were reviewed and are negative. ALLERGIES: Lisinopril MEDICATIONS: "A bunch, I don't know their names" PMH: Diabetes, heart disease, anxiety, hyperlipidemia SOCIAL HISTORY: The patient lives locally with family. He denies drug, alcohol , tobacco use. PHYSICAL EXAM: VITALS: Vitals are noted on the nurse's note and reviewed by myself. Vital signs stable. GENERAL: This is a 72-year-old white male, in no acute distress, nondiaphoretic , well-developed well-nourished. SKIN: Slight erythema in the anterior aspect of the proximal right upper extremity extending from the antecubital space to the mid humerus. There is no fluctuance or purulence. No drainage. No significant edema. Palpable cord within the right upper extremity. Otherwise, no ecchymosis, bruising, swelling , excoriations, or other skin lesions. NEXT: Supple. No lymphadenopathy. HEART: Regular rate and rhythm. No murmurs, gallops, rubs LUNGS: CTA bilaterally. No wheezes, rhonchi, rales. MUSCULOSKELETAL: Full range of motion of the right upper extremity. There is mild tenderness to palpation of the mid humerus. There is full range of motion at the shoulder and elbow. Strength 5/5. Distal pulses 2+. RADIOLOGY: VENOUS DOPPLER ULTRASOUND THE RIGHT UPPER EXTREMITY CLINICAL HISTORY: Right upper extremity redness, swelling. History of phlebitis. COMPARISON STUDY: No previous studies for comparison. FINDINGS: No intraluminal thrombus was visualized, within the internal jugular, subclavian, axillary, brachial, basilic, radial or ulnar veins. There is extensive thrombus within the cephalic vein extending from the mid clavicular level to the mid forearm.. IMPRESSION: 1. Extensive cephalic vein thrombus extending from the mid forearm to the clavicular level 2. No evidence of thrombus within the deep system proper Electronically signed by: Kvng Lynch M.D. 01/15/2018 5:42 PM Dictated Date/Time: 01/15/2018 5:39 PM EMERGENCY DEPARTMENT COURSE: The patient seen and evaluated as above. Ultrasound performed to rule out worsening phlebitis or DVT given the patient's symptoms. I did speak with the radiologist after review of ultrasound and he did compare the images to previous ultrasound performed approximately 1 month ago. He states there is no significant change noted. I discussed the findings with the patient at bedside. Because of his history of gastric ulcers while taking aspirin, I recommended topical NSAIDs and close follow-up with hematology. The patient verbalized agreement and understanding. I did discuss the case with my attending, who did see and evaluate the patient. All questions answered patient satisfaction prior to discharge. Discharge instructions reviewed, patient was discharged home in good condition. I attest that I have personally reviewed the patient's current medication list. Patient was found to have normal blood pressure on screening and does not require follow-up. Etiologies such as superficial phlebitis, cellulitis, abscess, DVT, joint effusion, infection, trauma, muscular, lymphedema, idiopathic, CHF, as well as others were entertained. DIAGNOSIS: Superficial phlebitis of the right upper extremity The chart was completed utilizing [employer] voice recognition software. Grammatical errors, random word insertions, pronoun errors, and incomplete sentences are an occasional consequence of this system due to software limitations, ambient noise, and hardware issues. Any formal questions or concerns about the content, text, or information contained within the body of this dictation should be directly addressed to the provider for clarification. Problem List Medical Problems: (1) Asthma, Unspecified Status: Chronic (2) Diab [place] Wo Compl, Type Ii Or Unspec Type, Not Uncntrld Status: Chronic (3) Encounter for medication refill Status: Resolved (4) Fever Status: Resolved (5) Hyperlipidemia, Unspecified Status: Chronic (6) Hypertension Nos Status: Chronic (7) Hypothyroidism, Unspecified Status: Chronic (8) Left leg cellulitis Status: Resolved (9) Lyme disease Status: Resolved (10) Medication refill Status: Resolved Current/Historical Medications Scheduled Aspirin (Aspirin Ec), 81 MG PO QPM Atenolol (Tenormin), 50 MG PO QPM Atorvastatin (Lipitor), 10 MG PO QAM Buspirone Hcl (Buspirone Hcl), 10 MG PO BID Flaxseed (Linseed) (Flax Seed Oil), 1 CAP PO QAM Fluticasone Propionate (Nasal) (Flonase Allergy Relief), 2 SPRAYS OPAL DAILY Insulin Glargine (Lantus), 45 UNITS SC BID Insulin Human Regular (Humulin R), 20-40 UNITS SC BID Levothyroxine Sodium (Synthroid), 100 MCG PO QAM Losartan Potassium (Cozaar), 25 MG PO QAM Metformin Hcl (Glucophage), 1,000 MG PO BIDM Multivitamin (Multivitamin), 1 TAB PO QAM Scheduled PRN Buspirone Hcl (Buspirone Hcl), 5 MG PO BID PRN for Anxiety Allergies Coded Allergies: Lisinopril (Verified Adverse Reaction, Unknown, Erectile Dysfunction, 12/20) Vital Signs Date Time Temp Pulse Resp B/P (MAP) Pulse Ox O2 Delivery O2 Flow Rate FiO2 01/15/18 17:42 149/80 01/15/18 14:53 36.9 63 18 113/72 94 Room Air Medications Administered Medications (Trade) Dose Ordered Sig/Krystian Route Start Time Stop Time Status Last Admin Dose Admin Diclofenac Sodium (Voltaren 1% Top Gel) 1 appln NOW STAT EXT 01/15/18 15:14 01/15/18 15:16 DC 01/15/18 15:50 1 APPLN Departure Information Impression Primary Impression: Phlebitis of superficial vein of upper extremity Dispostion Home / Self-Care Condition GOOD Referrals Martha Alexander CRNP (PCP) Lumadue,Fozia A., M.D., PHD Patient Instructions ED Phlebitis Superficial, My [facility] Additional Instructions You were seen in the ED today for superficial phlebitis/clot of the right upper extremity. Use the Voltaren gel four times per day to help with pain and inflammation. Acetaminophen(Tylenol) may be used for fever or pain. Use 1000mg every six hours as needed. Avoid using more than 3000mg in a 24 hour period. Follow-up with Dr. Power, hematology, for further evaluation and management of the clot. Return to the ED for worsening pain, swelling, redness, numbness/tingling, fever , body aches, purulent drainage, or other concerning symptoms.
[2018-01-15 17:42] VITALS: BP 149/80
--- NOTE | 2018-01-15 17:43 | DIAGNOSTIC IMAGING REPORT ---
VENOUS DOPPLER ULTRASOUND THE RIGHT UPPER EXTREMITY CLINICAL HISTORY: Right upper extremity redness, swelling. History of phlebitis. COMPARISON STUDY: No previous studies for comparison. FINDINGS: No intraluminal thrombus was visualized, within the internal jugular, subclavian, axillary, brachial, basilic, radial or ulnar veins. There is extensive thrombus within the cephalic vein extending from the mid clavicular level to the mid forearm.. IMPRESSION: 1. Extensive cephalic vein thrombus extending from the mid forearm to the clavicular level 2. No evidence of thrombus within the deep system proper Electronically signed by: Kvng Lynch M.D. 01/15/2018 5:42 PM Dictated Date/Time: 01/15/2018 5:39 PM
--- NOTE | 2018-01-15 18:17 | EMERGENCY ROOM VISIT NOTE ---
ED Visit Note First contact with patient: 15:01 Patient seen and examined at bedside after discussion with physician virtual customer assistant. Imaging reviewed. Patient unable to use anti-inflammatories due to history of peptic ulcer disease and GI bleed. Discussed with patient close follow-up with family doctor, symptoms to watch and return for, he verbalized understanding was agreeable to plan.
== END 2018-01-15 18:20 | disposition home or self-care (01) ==
LOC: C.EDB 14:33 → C.EDD 18:20
DX: I80.8 Phlebitis and thrombophlebitis of other sites (principal); E11.9 Type 2 diabetes mellitus without complications; I51.9 Heart disease, unspecified; F41.9 Anxiety disorder, unspecified; E78.5 Hyperlipidemia, unspecified; J45.909 Unspecified asthma, uncomplicated; I10 Essential (primary) hypertension; E03.9 Hypothyroidism, unspecified; Z88.8 Allergy status to other drugs, medicaments and biological substances

== ENCOUNTER 2020-05-27 17:27 | Observation (INO) ==
[2020-05-27] MEDS ORDERED: LORazepam 2 MG/4 ML VIAL IV STA (18:35)
[2020-05-27] MEDS ORDERED: SODIUM CHLORIDE 0.9% 1000ML 1,000 ML IV SCH (18:45)
[2020-05-27 18:49] LABS: Hematocrit (blood only) 38.7 % (42-52); Hemoglobin 13.4 g/dL (14.0-18.0); Mean Corpuscular Hemoglobin 34.9 pg (25-34); Mean Corpuscular Hgb Conc 34.6 g/dL (32-36); Mean Corpuscular Volume 100.8 fL (80-100); RDW Coefficient of Variation 14.3 % (11.5-14.5); RDW Standard Deviation 51.6 fL (36.4-46.3); Red Blood Count 3.84 M/uL (4.7-6.1); White Blood Count 4.43 K/uL (4.8-10.8)
[2020-05-27 18:56] LABS: Appearance Urine Clear (Clear); Bacteria Urine Automated Negative (Negative); Bilirubin Urine Negative (Negative); Blood Urine Negative (Negative); Color Urine Yellow; Epithelial Cell Urine Auto 0-5 /lpf (0-5); Glucose Urine UA 3+ (Negative); Ketones Urine Trace (Negative); Leukocyte Esterase Urine Negative (Negative); Nitrite Urine Negative (Negative); Protein Urine Trace (Negative); RBC Urine Automated 0-4 /hpf (0-4); Specific Gravity Urine 1.019 (1.000-1.030); Urobilinogen Urine Negative (Negative)
--- NOTE | 2020-05-27 18:57 | CT Scan Report ---
CT head/brain wo con CLINICAL HISTORY: Acute change in mental status COMPARISON STUDY: No previous studies for comparison. TECHNIQUE: Axial CT of the brain is performed from the vertex to the skull base. IV contrast was not administered for this examination. A dose lowering technique was utilized adhering to the principles of ALARA. CT DOSE: 884.08 mGy.cm FINDINGS: No intra or extra-axial mass lesions are visualized. There is no CT evidence of acute cortical infarc tion. There is no evidence of midline shift. There is no acute hemorrhage. No calvarial fractures ar e visualized. There are minimal white matter hypodensities likely on a small vessel basis. There is no evidence of pathologic ventricular dilatation. There are involutional changes. There is no evidence of acute sinusitis IMPRESSION: No acute intracranial findings ACT 112: Negative or not required by law. Electronically signed by: Kvng Lynch M.D. 05/27/2020 6:56 PM
[2020-05-27 18:58] LABS: INR 1.1 (0.9-1.1); Prothrombin Time 11.9 Seconds (9.0-12.0)
--- NOTE | 2020-05-27 19:04 | XRay Report ---
XR chest 1V portable CLINICAL HISTORY: weakness COMPARISON STUDY: 12/12/2017 FINDINGS: The heart is enlarged. There is mild pulmonary vascular congestion. There is stable left mi d lung zone atelectasis/scarring. There is no acute parenchymal consolidation.[ IMPRESSION: Cardiomegaly and persistent mild pulmonary vascular congestion. No evidence of lobar cons olidation ACT 112: Negative or not required by law. Electronically signed by: Kvng Lynch M.D. 05/27/2020 7:03 PM
[2020-05-27 19:12] LABS: Mean Platelet Volume 11.2 fL (7.4-10.4); Platelet Count 68 K/uL (130-400)
[2020-05-27 19:13] LABS: Basophils # (auto) 0.03 K/uL (0-0.2); Basophils % (auto) 0.7 %; Eosinophils # (auto) 0.13 K/uL (0-0.5); Eosinophils % (auto) 2.9 %; Lymphocytes # (auto) 1.29 K/uL (1.2-3.4); Lymphocytes % (auto) 29.1 %; Monocytes # (auto) 0.45 K/uL (0.11-0.59); Monocytes % (auto) 10.2 %; Neutrophils # (auto) 2.53 K/uL (1.4-6.5); Neutrophils % (auto) 57.1 %; Platelet Estimate Decreased (Normal)
[2020-05-27] MEDS ORDERED: SODIUM CHLORIDE 0.9% 1000ML 500 ML IV ONE (19:22)
[2020-05-27 19:51] LABS: Alanine Aminotransferase 52 U/L (12-78); Albumin Globulin Ratio 0.8 (0.9-2); Albumin Level 3.2 gm/dl (3.4-5.0); Alkaline Phosphatase 75 U/L (45-117); BUN Creatinine Ratio 13.6 (10-20); Blood Urea Nitrogen 13 mg/dl (7-18); Calcium 8.1 mg/dl (8.5-10.1); Carbon Dioxide 20 mmol/L (21-32); Chloride 110 mmol/L (98-107); Est GFR (African American) 90.4; Globulin 3.8 gm/dl (2.5-4.0); Glucose 288 mg/dl (70-99); Sodium 142 mmol/L (136-145); Troponin I < 0.015 ng/ml (0-0.045)
[2020-05-27 20:04] LABS: Potassium 3.8 mmol/L (3.5-5.1)
[2020-05-27 20:09] LABS: Aspartate Aminotransferase 48 U/L (15-37); Creatine Kinase 89 U/L (39-308)
[2020-05-27] MEDS ORDERED: LORazepam 1 MG/2 ML VIAL IV PRN (21:04)
[2020-05-27] MEDS ORDERED: FOLIC ACID 1 MG in SYRINGE 9.8 ML IV STA (21:04)
[2020-05-27] MEDS ORDERED: THIAMINE HCL 100 MG in SYRINGE 9 ML IV STA (21:04)
--- NOTE | 2020-05-27 21:20 | History & Physical Report ---
Date of Service May 27, 2020 Assessment & Plan (1) Altered mental status: It appears that the patient's altered mental status is due to alcohol intoxication. Review of his chart reveals he does have a history of cirrhosis. Patient is afebrile without leukocytosis and there is not appear to be any infectious etiology of his altered mental status. As noted he had a CT scan of the head that did not show any acute intracranial abnormalities making stroke less likely cause of his altered mental status as well. We will proceed by admitting the patient to [facility] with telemetry monitoring. Neurologic checks will be employed every 4 hours. We will provide the patient with thiamine multivitamin and multivitamin. We will hydrate him gently with IV fluids. Order as needed intravenous Ativan should agitation ensue. A PPI will be used for GI prophylaxis. Will encourage the patient to abstain from alcohol consumption in the future. Patient does have an elevated lactic acid level. This may be from prolonged lying on the floor as well as alcohol use. Repeat level is pending. She has noted to have a slight anemia as well as thrombocytopenia. I suspect that these problems are related to his underlying liver issues. This patient is diabetic and at the present time I do not feel comfortable allowing him to eat due to his altered mental status. Once the patient is awake alert and can protect his airway we will proceed by advancing his diet to a diabetic diet at which time we will reinstitute his home regimen of insulin. For the present time however we will follow BSG's every 6 hours and cover him with sliding scale insulin. The patient's hypertension will maintain him on his home regimen of losartan and atenolol. If he is unable to take these medications we can certainly provide intravenous medication likely in the form of IV hydralazine. The treating emergency room physician was unable to contact any family but was able to contact a family friend. Due to the patient's altered mental status we cannot address CODE STATUS so he will have to be a level 1 full code at the present time. When the patient is more lucid we can address this with him. By CMS guidelines, a determination that the admission or continued stay is not medically necessary has been made by a member of the UR committee and a physician for this hospital stay, therefore a Code 44 will be completed and the Inpatient admission will be changed to outpatient. (2) Discharge planning issues: By CMS guidelines, a determination that the admission or continued stay is not medically necessary has been made by a member of the UR committee and a physician for this hospital stay, therefore a Code 44 will be completed and the Inpatient admission will be changed to outpatient. Ivan Cordero History of Present Illness Chief Complaint: Altered mental status Primary Care Provider: Ramakrishna Lozoya DO This is a 74-year-old male who lives alone. He presented to the emergency department due to altered mental status. At the time of my exam the patient had received Ativan due to agitation that was noted at the time of his presentation. He therefore was somewhat lethargic. He did not provide any meaningful history but I did discuss with the treating nurse at the bedside along with the treating emergency room physician as well as review of records. According to reports from the treating emergency room physician this man lives alone and has a life alert device. Due to concerns of the activity noted on his life alert EMS was summoned to his house where patient was found to be lying on the floor. He was therefore brought to the emergency department. In the emergency department the patient underwent a CT scan of his head that did not show any acute intracranial findings. He had a chest x-ray that did not show any evidence of pneumonia or infiltrates or CHF. The patient did have labs where his white blood cell count was 4.4 hemoglobin hematocrit 13.4 and 38.7 and his platelet count was 68,000. Chemistry profile showed sodium and potassium were normal his BUN and creatinine were normal. He was noted to have an elevated lactate level at 4.5. Glucose was 288. No significant elevation of his LFTs however his ammonia was slightly elevated at 45. The patient did have a COVID-19 test which was noted to be negative. An alcohol level was checked which was noted to be 241 which was markedly elevated. At the time of my exam the patient was sleeping comfortably in bed in no distress I was able to arouse him and he did not offer any specific complaints at this time. The patient did not have any family I was able to contact. Due to his altered mental status I could not address CODE STATUS at this time. Allergies Allergy/AdvReac Type Severity Reaction Status Date / Time lisinopril AdvReac Mild Erectile Verified 05/27/20 18:30 Dysfunction Home Medications Medication Instructions Recorded Confirmed Type albuterol sulfate 90 mcg/actuation 1 - 2 puffs INHALATION Q4H PRN #1 01/04/19 05/20/20 History aerosol inhaler gm cholecalciferol (vitamin D3) 50 2,000 units PO DAILY cap 01/04/19 05/20/20 History mcg (2,000 unit) capsule flaxseed oil 1,000 mg capsule 1,000 mg PO DAILY cap 01/04/19 05/20/20 History multivitamin 1 tab PO DAILY 01/04/19 05/20/20 History insulin regular human 100 unit/mL 50 units SQ BIDM #100 ml 06/07/19 05/20/20 Rx injection solution fluticasone propionate 50 2 sprays INTRANASAL DAILY #1 gm 06/22/19 05/20/20 Rx mcg/actuation nasal spray,suspension atenolol 25 mg tablet 25 mg PO DAILY #90 tab 09/04/19 05/20/20 Rx buspirone 10 mg tablet 10 mg PO BID #180 tab 09/04/19 05/20/20 Rx insulin glargine 100 unit/mL 60 units SQ BID #140 ml 10/02/19 05/20/20 Rx subcutaneous solution atorvastatin 10 mg tablet 10 mg PO DAILY #90 tab 10/03/19 05/20/20 Rx metformin 1,000 mg tablet 1,000 mg PO BID #180 tab 11/30/19 05/20/20 Rx losartan 25 mg tablet 25 mg PO DAILY #90 tab 12/17/19 05/20/20 Rx insulin syringe-needle U-100 1 mL #400 ea 12/20/19 05/20/20 Rx 31 gauge x 5/16" omeprazole 20 mg capsule,delayed 20 mg PO DAILY #90 cap 12/25/19 05/20/20 Rx release hydroxyzine HCl 25 mg tablet 25 mg PO TID PRN #30 tab 01/22/20 05/20/20 Rx levothyroxine 100 mcg tablet 100 mcg PO DAILY #90 tab 04/25/20 05/20/20 Rx Past Med/Surg History Medical History (Updated 05/28/20 @ 17:09 by Ivan Cordero DO) Anxiety and depression Cirrhosis of liver "ETOH RELATED" Diabetes type 2, uncontrolled Dyslipidemia Former smoker Hepatic steatosis History of diverticulosis Hx of duodenal ulcer Hypertension Hypothyroidism PAC (premature atrial contraction) Poor historian PVC (premature ventricular contraction) Sinus bradycardia Tubular adenoma of colon Varices, gastric Surgical History H/O umbilical hernia repair History of colonoscopy History of esophagogastroduodenoscopy (EGD) History of tooth extraction S/P cataract surgery b/l. 2019 Family History Sister Carotid arterial disease Family history of diabetes mellitus Mother Family history of diabetes mellitus Social History Smoking Status: Former smoker Age Started Using Tobacco: 17; Age Quit Using Tobacco: 29; packs per day: 1; Years Smoked: 22; Cigarettes Per Day: 20; Second Hand Exposure: No; Hx Alcohol Use: Yes Alcohol type: beer Hx Substance Use: No Preferred Language: Pakistani Communication Ability: Effective Hearing Ability: Use of Hearing Aid Pizza Cook Required: No Beliefs That Will Affect Care: None marital status: / Current Living Situation: Alone current occupational status: retired Feels Safe at Home: Yes Childhood Exposure to Second-Hand Smoke: No caffeine: No Dental Care, Regularly: Yes Seatbelt Use: always Sunscreen Use: Yes Assistive Devices: Glasses Review of Systems Review of Systems: A full review of systems was attempted however this was unsuccessful due to the condition of the patient noted at time of my interview. Physical Exam Constitutional: well developed and well nourished; no acute distress Eyes: + anicteric sclerae and PERRL; no conjunctival abnormality ENMT: Ears: no hearing impairment No hemotympanum was noted. There were no signs of trauma to the nose. No rhinorrhea was noted. Neck: trachea midline Respiratory: normal respiratory effort and + respiratory distress; no labored breathing Cardiovascular: Rate/Rhythm: regular rate and regular rhythm Gastrointestinal (Abdomen): Percussion/Palpation: abdomen soft; abdomen nontender Palpation of the abdomen did not elicit pain. There was no bruising noted. Musculoskeletal: No gross orthopedic abnormalities were noted of the extremities. There is no mottling or cyanosis of the extremities. Skin: no rashes, warm and dry Neurologic: Patient was somewhat lethargic at the time of my exam however I was able to arouse him with normal verbal stimuli. The patient was able to move all 4 extremities on command without noted focal deficits. Psychiatric: Orientation: oriented to person Results & Data Results & Data ([facility]) Vital Signs (Past 12 Hours) Vital Signs Temp Pulse Resp BP Pulse Ox 05/27/20 20:31 73 14 05/27/20 20:30 75 18 156/97 H 95 05/27/20 20:00 71 15 153/80 H 96 05/27/20 19:30 74 15 123/89 95 05/27/20 19:06 70 18 142/69 H 95 05/27/20 18:57 66 16 143/79 H 94 05/27/20 18:40 97 05/27/20 17:45 36.4 C L 73 18 128/85 94 Code Status & VTE Plan VTE Prophylaxis Plan VTE Prophylaxis will be ordered: Yes Supervising Physician Co-Signing Physician Notes Attending addendum: I have physically seen this patient, have supervised the KILO's activities, and agree with the H&P unless as otherwise noted. Assessment and Plan: Alcohol intoxication/withdrawal- CT head negative AWSS protocol. work-up with no active signs of infection. Patient with COVID-19 negative testing. Hypertension- Continue atenolol and losartan with hold parameters Diabetes mellitus- Hold Metformin reduce insulin glargine dose from 60 to 30 units subcu twice daily until diet is determined to be normalized. Placed on Accu-Cheks before meals and at bedtime with NovoLog coverage for scale Hypothyroidism- Continue levothyroxine sodium 100 mcg daily Hyperlipidemia- Continue atorvastatin 10 mg daily Remainder of orders and notations as noted PG Care Time/CCT Total # of Minutes Spent Total Time Spent with Patient: Total time spent is greater than 50% in coordination of care (as documented) at patient's floor/unit and/or counseling patient: Coding Level of Care Code 30629 Initial Inpt Care Lvl 3 Diagnoses Altered mental status R41.82 Discharge planning issues Z02.9
[2020-05-27] MEDS ORDERED: GLUCOSE 40% GEL 15 GM TUBE PO PRN (22:45)
[2020-05-27] MEDS ORDERED: GLUCAGON FOR INJ 1 MG VIAL IM PRN (22:45)
[2020-05-27] MEDS ORDERED: CARBOHYDRATES FOR HYPOGLYCEMIA PO PRN (22:45)
[2020-05-27] MEDS ORDERED: GLUCOSE 10 TABS/TUBE PO PRN (22:45)
[2020-05-27] MEDS ORDERED: DEXTROSE 50% 50 ML SYRINGE IV PRN (22:45)
[2020-05-27] MEDS: LACTATED RINGER'S 1,000 ML IV SCH (23:07)
[2020-05-27] MEDS ORDERED: INFLUENZA VACCINE HIGH DOSE 65+ 0.7 ML SYR IM ONE (23:15)
[2020-05-27] MEDS ORDERED: PNEUMOCOCCAL Polysaccharide Vaccine 25mcg/0.5mL vial/Syr IM ONE (23:15)
[2020-05-27] MEDS: INSULIN ASPART 100 UNITS/ML 3 ML PEN SC SCH (23:59)
[2020-05-28] MEDS: INSULIN ASPART 100 UNITS/ML 3 ML PEN SC SCH ×4 (05:53→17:38)
[2020-05-28] MEDS ORDERED: LEVOTHYROXINE SODIUM 100 MCG TABLET PO SCH (06:30)
[2020-05-28] MEDS ORDERED: Nursing to Pharmacy Communication SCH (06:30)
[2020-05-28] MEDS ORDERED: THIAMINE HCL 100 MG in SYRINGE 9 ML IV SCH (09:00)
[2020-05-28] MEDS ORDERED: ATENOLOL 25 MG TABLET PO SCH (09:00)
[2020-05-28] MEDS ORDERED: MULTIVITAMIN TAB PO SCH (09:00)
[2020-05-28] MEDS ORDERED: LOSARTAN POTASSIUM 25 MG TAB PO SCH (09:00)
[2020-05-28] MEDS ORDERED: FOLIC ACID 1 MG in SYRINGE 9.8 ML IV SCH (09:00)
[2020-05-28] MEDS ORDERED: PANTOprazole 40 MG TAB PO SCH (09:00)
[2020-05-28] MEDS: busPIRone 5 MG TAB PO SCH ×2 (09:14→12:52)
--- NOTE | 2020-05-28 12:11 | Electrocardiogram Report ---
Test Reason : Blood Pressure : / mmHG Vent. Rate : 074 BPM Atrial Rate : 074 BPM P-R Int : 162 ms QRS Dur : 106 ms QT Int : 422 ms P-R-T Axes : 011 -50 -13 degrees QTc Int : 468 ms Normal sinus rhythm Left anterior fascicular block Moderate voltage criteria for LVH, may be normal variant Poor R wave progression, consider anterior IL vs. lead placement vs. LVH Abnormal ECG When compared with ECG of 12-DEC-2017 12:52, Fusion complexes are no longer Present Premature atrial complexes are no longer Present Inverted T waves have replaced nonspecific T wave abnormality in Inferior leads Confirmed by Sánchez Reynolds ([id number]) on 05/28/2020 12:11:15 PM Referred By: REFERRED SELF Confirmed By:Sánchez Reynolds
[2020-05-28] MEDS: LACTATED RINGER'S 1,000 ML IV SCH (12:48)
--- NOTE | 2020-05-28 17:11 | Discharge Summary ---
Date of Service May 28, 2020 Admission HPI Per Admitting Provider This is a 74-year-old male who lives alone. He presented to the emergency department due to altered mental status. At the time of my exam the patient had received Ativan due to agitation that was noted at the time of his presentation. He therefore was somewhat lethargic. He did not provide any meaningful history but I did discuss with the treating nurse at the bedside along with the treating emergency room physician as well as review of records. According to reports from the treating emergency room physician this man lives alone and has a life alert device. Due to concerns of the activity noted on his life alert EMS was summoned to his house where patient was found to be lying on the floor. He was therefore brought to the emergency department. In the emergency department the patient underwent a CT scan of his head that did not show any acute intracranial findings. He had a chest x-ray that did not show any evidence of pneumonia or infiltrates or CHF. The patient did have labs where his white blood cell count was 4.4 hemoglobin hematocrit 13.4 and 38.7 and his platelet count was 68,000. Chemistry profile showed sodium and potassium were normal his BUN and creatinine were normal. He was noted to have an elevated lactate level at 4.5. Glucose was 288. No significant elevation of his LFTs however his ammonia was slightly elevated at 45. The patient did have a COVID-19 test which was noted to be negative. An alcohol level was checked which was noted to be 241 which was markedly elevated. At the time of my exam the patient was sleeping comfortably in bed in no distress I was able to arouse him and he did not offer any specific complaints at this time. The patient did not have any family I was able to contact. Due to his altered mental status I could not address CODE STATUS at this time. Principal Diagnosis Likely alcohol intoxication Discharge Exam Constitutional WD/WN, vitals as above Eyes EOM intact bilaterally; no conjunctival abnormality ENMT external ear and nose normal, oropharynx normal Neck trachea midline, no thyromegaly normal visual inspection Respiratory normal respiratory effort, lungs clear to auscultation no respiratory distress Cardiovascular RRR, no murmur, no edema Gastrointestinal (Abdomen) Inspection/Auscultation: abdomen normal to inspection; abdomen not distended Musculoskeletal no cyanosis or clubbing, extremities motor strength 5/5 Skin no rashes, warm and dry Neurologic moves all extremities and awake Psychiatric Orientation: alert, oriented to person and cooperative Discharge Data Allergies Allergy/AdvReac Type Severity Reaction Status Date / Time lisinopril AdvReac Mild Erectile Verified 05/27/20 18:30 Dysfunction Consultations 05/27/20 20:43 ED Decision to Admit Stat Ordered Studies 05/27/20 18:35 CT head/brain wo con Stat Hospital Course (1) Altered mental status: It appears that the patient's altered mental status is due to alcohol intoxication. Review of his chart reveals he does have a history of cirrhosis. Patient is afebrile without leukocytosis and there is not appear to be any infectious etiology of his altered mental status. As noted he had a CT scan of the head that did not show any acute intracranial abnormalities making stroke less likely cause of his altered mental status as well. We will proceed by admitting the patient to [facility] with telemetry monitoring. Neurologic checks will be employed every 4 hours. We will provide the patient with thiamine multivitamin and multivitamin. We will hydrate him gently with IV fluids. Order as needed intravenous Ativan should agitation ensue. A PPI will be used for GI prophylaxis. Will encourage the patient to abstain from alcohol consumption in the future. Patient does have an elevated lactic acid level. This may be from prolonged lying on the floor as well as alcohol use. Repeat level is pending. She has noted to have a slight anemia as well as thrombocytopenia. I suspect that these problems are related to his underlying liver issues. This patient is diabetic and at the present time I do not feel comfortable allowing him to eat due to his altered mental status. Once the patient is awake alert and can protect his airway we will proceed by advancing his diet to a diabetic diet at which time we will reinstitute his home regimen of insulin. For the present time however we will follow BSG's every 6 hours and cover him with sliding scale insulin. The patient's hypertension will maintain him on his home regimen of losartan and atenolol. If he is unable to take these medications we can certainly provide intravenous medication likely in the form of IV hydralazine. The treating emergency room physician was unable to contact any family but was able to contact a family friend. Due to the patient's altered mental status we cannot address CODE STATUS so he will have to be a level 1 full code at the present time. When the patient is more lucid we can address this with him. By CMS guidelines, a determination that the admission or continued stay is not medically necessary has been made by a member of the UR committee and a ph ysician for this hospital stay, therefore a Code 44 will be completed and the Inpatient admission will be changed to outpatient. (2) Discharge planning issues: By CMS guidelines, a determination that the admission or continued stay is not medically necessary has been made by a member of the UR committee and a physician for this hospital stay, therefore a Code 44 will be completed and the Inpatient admission will be changed to outpatient. Ivan Cordero DO Total Time Total Time Spent Total Time Spent (In Minutes): 35 Discharge Plan Discharge Items Patient Disposition: Home - Self-Care Reason For Visit: AMS, ETOH INTOXICATION Discharge Diagnosis: Fall, loss of consciousness Activity: Resume your previous activity Non-emergency contact: Primary Care Provider Call non-emergency contact if: your symptoms worsen Follow-up/Referrals: Ramakrishna Lozoya DO [Primary Care Provider] - Diet: Regular Addtl Attending Provider Instructions: You were admitted after a fall and loss of consciousness at home. We worry about heart issues and seizure after periods like this. We did not see any indication on telemetry of dangerous arrhythmias. We are concerned that alcohol intake contributed to this fall. Given your history of liver issues, you should really refrain from drinking or go down to at most 1 drink per day. A drink would be 1.5 oz of liquor, a 12 oz. beer, or 4.5 oz glass of wine. Again, it would be best if you did NOT drink any alcohol. Pending Studies at Discharge: No Stand-Alone Forms: [facility], Smoking Cessation Medications and DC Order Prescriptions: Continued Novolin R Regular U-100 Insuln 100 unit/mL solution 50 units SQ BIDM Qty: 100 RF: 3 atenolol 25 mg tablet 25 mg PO DAILY Qty: 90 RF: 3 atorvastatin 10 mg tablet 10 mg PO DAILY Qty: 90 RF: 3 metformin 1,000 mg tablet 1,000 mg PO BID Qty: 180 RF: 3 losartan 25 mg tablet 25 mg PO DAILY Qty: 90 RF: 3 (DME) insulin syringe-needle U-100 [BD Insulin Syringe Ultra-Fine] 1 mL 31 gauge x 5/16 syringe See Rx Instructions .ROUTE .MEDSUPPLY Qty: 400 RF: 3 omeprazole 20 mg capsule,delayed release(DR/EC) 20 mg PO DAILY Qty: 90 RF: 2 levothyroxine 100 mcg tablet 100 mcg PO DAILY Qty: 90 RF: 1 flaxseed oil 1,000 mg capsule 1,000 mg PO DAILY RF: 0 multivitamin tablet 1 tab PO DAILY RF: 0 albuterol sulfate 90 mcg/actuation HFA aerosol inhaler 1 - 2 puffs inhalation Q4H PRN (Reason: SHORT OF BREATH) Qty: 1 RF: 0 cholecalciferol (vitamin D3) 2,000 unit capsule 2,000 units PO DAILY RF: 0 Lantus U-100 Insulin 100 unit/mL solution 60 units SQ BID Qty: 140 RF: 5 buspirone 10 mg tablet 10 mg PO BID Qty: 180 RF: 3 fluticasone propionate 50 mcg/actuation spray,suspension 2 sprays intranasal DAILY Qty: 1 RF: 3 hydroxyzine HCl 25 mg tablet 25 mg PO TID PRN (Reason: anxiety and insomnia) Qty: 30 RF: 3 Discharge Orders: Discharge Order (Routine); Ordered 05/28/20 Ordered By: Quan Luna Admission Data Admit Date/Time: 05/27/20 21:04 Attending Provider: Quan Luna Admit Provider: Ricci Jimenez Primary Care Provider: Ramakrishna Lozoya Other Providers: Quan Luna Coding Level of Care Code 69479 OBS Care - Discharge Diagnoses Altered mental status R41.82 Discharge planning issues Z02.9
--- NOTE | 2020-05-29 18:41 | Emergency Department Note ---
History of Present Illness General Chief complaint: Altered Mental Status Stated complaint: ALTERED MENTAL STATUS Time Seen by Provider: 05/27/20 18:34 Source: RN notes reviewed Mode of arrival: EMS Limitations: altered mental status History of Present Illness Provider complaint: AMS This pt is a 74 yo male who presents to the ED with c/o AMS by EMS. Apparently [facility] was contacted reportedly b/c the pt "was not moving around in the apartment" for several hours. Pt apparently lives alone and history is unclear. Chart reveals h/o ETOH and fatty liver. There is a friend/neighbor listed but friend states he doesn't have any details. Pt is sedate d/t versed in route and unable to answer questions. Home Medications Medication Instructions Recorded Confirmed Type albuterol sulfate 90 mcg/actuation 1 - 2 puffs INHALATION Q4H PRN #1 01/04/19 05/31/20 History aerosol inhaler gm cholecalciferol (vitamin D3) 50 2,000 units PO DAILY cap 01/04/19 05/31/20 History mcg (2,000 unit) capsule flaxseed oil 1,000 mg capsule 1,000 mg PO DAILY cap 01/04/19 05/31/20 History multivitamin 1 tab PO DAILY 01/04/19 05/31/20 History insulin regular human 100 unit/mL 50 units SQ BIDM #100 ml 06/07/19 05/31/20 Rx injection solution fluticasone propionate 50 2 sprays INTRANASAL DAILY #1 gm 06/22/19 05/31/20 Rx mcg/actuation nasal spray,suspension atenolol 25 mg tablet 25 mg PO DAILY #90 tab 09/04/19 05/31/20 Rx buspirone 10 mg tablet 10 mg PO BID #180 tab 09/04/19 05/31/20 Rx insulin glargine 100 unit/mL 60 units SQ BID #140 ml 10/02/19 05/31/20 Rx subcutaneous solution atorvastatin 10 mg tablet 10 mg PO DAILY #90 tab 10/03/19 05/31/20 Rx metformin 1,000 mg tablet 1,000 mg PO BID #180 tab 11/30/19 05/31/20 Rx losartan 25 mg tablet 25 mg PO DAILY #90 tab 12/17/19 05/31/20 Rx insulin syringe-needle U-100 1 mL #400 ea 12/20/19 05/31/20 Rx 31 gauge x 5/16" omeprazole 20 mg capsule,delayed 20 mg PO DAILY #90 cap 12/25/19 05/31/20 Rx release hydroxyzine HCl 25 mg tablet 25 mg PO TID PRN #30 tab 01/22/20 05/31/20 Rx levothyroxine 100 mcg tablet 100 mcg PO DAILY #90 tab 04/25/20 05/31/20 Rx Allergies Allergy/AdvReac Type Severity Reaction Status Date / Time lisinopril AdvReac Mild Erectile Verified 05/31/20 11:09 Dysfunction Past Med/Surg History Medical History (Updated 05/31/20 @ 14:33 by Tessa De Paz MD) Anxiety and depression Cirrhosis of liver "ETOH RELATED" Diabetes type 2, uncontrolled Dyslipidemia Former smoker Hepatic steatosis History of diverticulosis Hx of duodenal ulcer Hypertension Hypothyroidism PAC (premature atrial contraction) Poor historian PVC (premature ventricular contraction) Sinus bradycardia Tubular adenoma of colon Varices, gastric Surgical History H/O umbilical hernia repair History of colonoscopy History of esophagogastroduodenoscopy (EGD) History of tooth extraction S/P cataract surgery b/l. 2020 Family History Sister Carotid arterial disease Family history of diabetes mellitus Mother Family history of diabetes mellitus Social History Smoking Status: Former smoker Age Started Using Tobacco: 17; Age Quit Using Tobacco: 29; packs per day: 1; Years Smoked: 22; Cigarettes Per Day: 20; Second Hand Exposure: No; Hx Alcohol Use: Yes Alcohol type: beer Hx Substance Use: No Preferred Language: Bulgarian Communication Ability: Effective Hearing Ability: Use of Hearing Aid Plastic Bubble Packer Required: No Beliefs That Will Affect Care: None marital status: / Current Living Situation: Alone current occupational status: retired Feels Safe at Home: Yes Childhood Exposure to Second-Hand Smoke: No caffeine: No Dental Care, Regularly: Yes Seatbelt Use: always Sunscreen Use: Yes Assistive Devices: Glasses Review of Systems Unobtainable due to cognitive status Physical Exam Vital signs reviewed. General: Chronically ill appearing, obese and disheveled, moaning and periodically thrashing. HEENT: No scleral icterus, PERRLA, neck supple. Atraumatic. Cardiovascular: Regular rate and rhythm, no extra sounds. Pulmonary: Clear to auscultation bilaterally, normal work of breathing. Abdomen: Soft, nontender, obese, nondistended, positive bowel sounds. Musculoskeletal: Atraumatic, no peripheral edema. Neurologic: Patient somnolent and unable to awaken, but periodically thrashes and pulls at blankets/lines. Moans. Moves all extremities, does not follow commands Skin: Warm, dry, no rash Course Administered Medications Discontinued Medications Atenolol (Atenolol 25 Mg Tablet) 25 mg PO QAM JESSY Stop: 06/27/20 08:59 Last Admin: 05/28/20 09:15 Dose: 25 mg Documented by: [id number] Buspirone HCl (Buspirone 5 Mg Tab) 10 mg PO TID JESSY Stop: 06/27/20 08:59 Last Admin: 05/28/20 12:52 Dose: 10 mg Documented by: [id number] Admin: 05/28/20 09:14 Dose: 10 mg Documented by: [id number] Sodium Chloride (Nss 1000ml) 1,000 mls @ 125 mls/hr IV .Q8H JESSY Stop: 05/28/20 02:44 Last Infusion: 05/27/20 22:50 Dose: 0 mls/hr Documented by: [id number] Infusion: 05/27/20 20:59 Dose: 125 mls/hr Documented by: [id number] Infusion: 05/27/20 20:29 Dose: 0 mls/hr Documented by: [id number] Admin: 05/27/20 19:09 Dose: 125 mls/hr Documented by: [id number] Lorazepam (Ativan) 2 mg in 4 mls @ 4 mls/min IV NOW STA Stop: 05/27/20 18:36 Last Admin: 05/27/20 18:46 Dose: 4 mls/min Documented by: [id number] Sodium Chloride (Nss 1000ml) 500 mls @ 999 mls/hr IV .Q31M ONE Stop: 05/27/20 19:52 Last Infusion: 05/27/20 20:41 Dose: 0 mls/hr Documented by: [id number] Admin: 05/27/20 20:10 Dose: 999 mls/hr Documented by: [id number] Thiamine HCl 100 mg/ Syringe 10 mls @ 2 mls/min IV NOW STA Stop: 05/27/20 21:08 Last Admin: 05/27/20 21:30 Dose: 2 mls/min Documented by: [id number] Folic Acid 1 mg/ Syringe 10 mls @ 5 mls/min IV NOW STA Stop: 05/27/20 21:05 Last Admin: 05/27/20 21:31 Dose: 5 mls/min Documented by: [id number] Folic Acid 1 mg/ Syringe 10 mls @ 5 mls/min IV QAM [facility] Stop: 06/27/20 08:59 Last Admin: 05/28/20 09:14 Dose: 5 mls/min Documented by: [id number] Lactated Ringer's (Lr) 1,000 mls @ 75 mls/hr IV .[id number] [facility] Stop: 06/26/20 22:36 Last Admin: 05/28/20 12:48 Dose: 75 mls/hr Documented by: [id number] Infusion: 05/28/20 12:27 Dose: 75 mls/hr Documented by: [id number] Admin: 05/27/20 23:07 Dose: 75 mls/hr Documented by: [id number] Thiamine HCl 100 mg/ Syringe 10 mls @ 2 mls[facility] [place]: 06/27/20 08:59 Last Admin: 05/28/20 09:14 Dose: 2 mls/min Documented by: [id number] Influenza Virus Vaccine (Influenza Vaccine High Dose 65+ 0.7 Ml Syr) 0.7 ml IM .ONCE ONE Stop: 05/27/20 23:16 Last Admin: 05/28/20 10:20 Dose: Not Given Documented by: [id number] Insulin Aspart (Insulin Aspart 100 Units/Ml 3 Ml Pen) 0 units SC Q6 [facility] Stop: 06/27/20 00:00 Last Admin: 05/28/20 05:53 Dose: 5 units Documented by: [id number] Cosigned by: [id number] Admin: 05/27/20 23:59 Dose: 4 units Documented by: [id number] Cosigned by: [id number] Insulin Aspart (Insulin Aspart 100 Units/Ml 3 Ml Pen) 0 units SC ACHS [facility] Stop: 06/27/20 07:29 Last Admin: 05/28/20 17:38 Dose: 16 units Documented by: [id number] Cosigned by: [id number] Admin: 05/28/20 12:40 Dose: 15 units Documented by: [id number] Cosigned by: [id number] Admin: 05/28/20 09:16 Dose: 2 units Documented by: [id number] Cosigned by: [id number] Levothyroxine Sodium ([facility]othy[facility]ine S[facility] 100 Mcg Tablet) [facility]: 06/27/20 06:29 Last Admin: 05/28/20 06:16 Dose: 100 mcg Documented by: [id number] Losartan Potassium (Losartan Potassium 25 Mg Tab) 25 mg PO [facility] Stop: 06/27/20 08:59 Last Admin: 05/28/20 09:15 Dose: 25 mg Documented by: [id number] Multivitamins (Multivitamin Tab) 1 tab PO [facility] Stop: 06/27/20 08:59 Last Admin: 05/28/20 09:15 Dose: 1 tab Documented by: [id number] Pantoprazole Sodium (Pantoprazole 40 Mg Tab) 40 mg PO [facility] Stop: 06/27/20 08:59 Last Admin: 05/28/20 09:15 Dose: 40 mg Documented by: [id number] Pneumococcal Polyvalent Vaccine (Pneumococcal Polysaccharide Vaccine 25mcg/0.5ml Vial/Syr) 25 mcg IM .ONCE ONE Stop: 05/27/20 23:16 Last Admin: 05/28/20 10:21 Dose: Not Given Documented by: [id number] Medical Decision Making Differential Diagnosis Infection, hypoglycemia, electrolyte abnormalities, overdose, toxicologic, c ardiac sources, intracerebral event, neurologic, trauma, as well as other pathologies. Medical Records Attestation: I reviewed the patient's medical records. Home Medications Current Medication List: was personally reviewed by me Laboratory Data Attestation: I reviewed the patient's lab results. Result diagrams: 05/27/20 18:00 05/27/20 18:00 Lab Results 05/27/20 05/27/20 05/27/20 Range/Units 18:00 18:00 18:00 WBC 4.43 L (4.8-10.8) K/uL RBC 3.84 L (4.7-6.1) M/uL Hgb 13.4 L (14.0-18.0) g/dL Hct 38.7 L (42-52) % MCV 100.8 H (80-100) fL MCH 34.9 H (25-34) pg MCHC 34.6 (32-36) g/dL RDW Std Deviation 51.6 H (36.4-46.3) fL RDW Coeff of Nuris 14.3 (11.5-14.5) % Plt Count 68 L (130-400) K/uL MPV 11.2 H (7.4-10.4) fL Immature Gran % (Auto) 0.0 % Neut % (Auto) 57.1 % Lymph % (Auto) 29.1 % Wheeler % (Auto) 10.2 % Eos % (Auto) 2.9 % Baso % (Auto) 0.7 % Neut # (Auto) 2.53 (1.4-6.5) K/uL Lymph # (Auto) 1.29 (1.2-3.4) K/uL Wheeler # (Auto) 0.45 (0.11-0.59) K/uL Eos # (Auto) 0.13 (0-0.5) K/uL Baso # (Auto) 0.03 (0-0.2) K/uL Immature Gran # (Auto) 0.00 (0.00-0.02) K/uL Platelet Estimate Decreased L (Normal) PT (9.0-12.0) Seconds INR (0.9-1.1) Sodium 142 (136-145) mmol/L Potassium 3.8 (3.5-5.1) mmol/L Chloride 110 H (98-107) mmol/L Carbon Dioxide 20 L (21-32) mmol/L Anion Gap 12.0 H (3-11) BUN 13 (7-18) mg/dl Creatinine 0.95 (0.6-1.4) mg/dl Est Cr Clr Drug Dosing Not Reportable Est GFR ( Amer) 90.4 Est GFR (Non-Af Amer) 78.0 BUN/Creatinine Ratio 13.6 (10-20) Glucose 288 H (70-99) mg/dl Lactate 5.1 H* (0.4-2.0) mmol/L Calcium 8.1 L (8.5-10.1) mg/dl Total Bilirubin 1.0 (0.2-1) mg/dl AST 48 H (15-37) U/L ALT 52 (12-78) U/L Alkaline Phosphatase 75 (45-117) U/L Ammonia (11-32) umol/L Total Creatine Kinase 89 (39-308) U/L Troponin I < 0.015 (0-0.045) ng/ml Total Protein 7.0 (6.4-8.2) gm/dl Albumin 3.2 L (3.4-5.0) gm/dl Globulin 3.8 (2.5-4.0) gm/dl Albumin/Globulin Ratio 0.8 L (0.9-2) TSH 2.760 (0.300-4.500) uIu/ml Urine Color Urine Appearance (Clear) Urine pH (4.5-7.5) Ur Specific [place] (1.000-1.030) Urine Protein (Negative) Urine Glucose (UA) (Negative) Urine Ketones (Negative) Urine Blood (Negative) Urine Nitrite (Negative) Urine Bilirubin (Negative) Urine Urobilinogen (Negative) Ur Leukocyte Esterase (Negative) Urine WBC (Auto) (0-5) /hpf Urine RBC (Auto) (0-4) /hpf U Hyaline Cast (Auto) (0-5) /lpf U Epithel Cells (Auto) (0-5) /lpf Urine Bacteria (Auto) (Negative) Ethyl Alcohol mg/dL (0-3) mg/dl 05/27/20 05/27/20 05/27/20 Range/Units 18:00 18:00 18:08 WBC (4.8-10.8) K/uL RBC (4.7-6.1) M/uL Hgb (14.0-18.0) g/dL Hct (42-52) % MCV (80-100) fL MCH (25-34) pg MCHC (32-36) g/dL RDW Std Deviation (36.4-46.3) fL RDW Coeff of Nuris (11.5-14.5) % Plt Count (130-400) K/uL MPV (7.4-10.4) fL Immature Gran % (Auto) % Neut % (Auto) % Lymph % (Auto) % Wheeler % (Auto) % Eos % (Auto) % Baso % (Auto) % Neut # (Auto) (1.4-6.5) K/uL Lymph # (Auto) (1.2-3.4) K/uL Wheeler # (Auto) (0.11-0.59) K/uL Eos # (Auto) (0-0.5) K/uL Baso # (Auto) (0-0.2) K/uL Immature Gran # (Auto) (0.00-0.02) K/uL Platelet Estimate (Normal) PT 11.9 (9.0-12.0) Seconds INR 1.1 (0.9-1.1) Sodium (136-145) mmol/L Potassium (3.5-5.1) mmol/L Chloride (98-107) mmol/L Carbon Dioxide (21-32) mmol/L Anion Gap (3-11) BUN (7-18) mg/dl Creatinine (0.6-1.4) mg/dl Est Cr Clr Drug Dosing Est GFR ( Amer) Est GFR (Non-Af Amer) BUN/Creatinine Ratio (10-20) Glucose (70-99) mg/dl Lactate (0.4-2.0) mmol/L Calcium (8.5-10.1) mg/dl Total Bilirubin (0.2-1) mg/dl AST (15-37) U/L ALT (12-78) U/L Alkaline Phosphatase (45-117) U/L Ammonia 45.1 H (11-32) umol/L Total Creatine Kinase (39-308) U/L Troponin I (0-0.045) ng/ml Total Protein (6.4-8.2) gm/dl Albumin (3.4-5.0) gm/dl Globulin (2.5-4.0) gm/dl Albumin/Globulin Ratio (0.9-2) TSH (0.300-4.500) uIu/ml Urine Color Yellow Urine Appearance Clear (Clear) Urine pH 5.0 (4.5-7.5) Ur Specific [place] 1.019 (1.000-1.030) Urine Protein Trace H (Negative) Urine Glucose (UA) 3+ H (Negative) Urine Ketones Trace H (Negative) Urine Blood Negative (Negative) Urine Nitrite Negative (Negative) Urine Bilirubin Negative (Negative) Urine Urobilinogen Negative (Negative) Ur Leukocyte Esterase Negative (Negative) Urine WBC (Auto) 1-5 (0-5) /hpf Urine RBC (Auto) 0-4 (0-4) /hpf U Hyaline Cast (Auto) 1-5 (0-5) /lpf U Epithel Cells (Auto) 0-5 (0-5) /lpf Urine Bacteria (Auto) Negative (Negative) Ethyl Alcohol mg/dL (0-3) mg/dl 05/27/20 05/27/20 Range/Units 19:03 19:39 WBC (4.8-10.8) K/uL RBC (4.7-6.1) M/uL Hgb (14.0-18.0) g/dL Hct (42-52) % MCV (80-100) fL MCH (25-34) pg MCHC (32-36) g/dL RDW Std Deviation (36.4-46.3) fL RDW Coeff of Nuris (11.5-14.5) % Plt Count (130-400) K/uL MPV (7.4-10.4) fL Immature Gran % (Auto) % Neut % (Auto) % Lymph % (Auto) % Wheeler % (Auto) % Eos % (Auto) % Baso % (Auto) % Neut # (Auto) (1.4-6.5) K/uL Lymph # (Auto) (1.2-3.4) K/uL Wheeler # (Auto) (0.11-0.59) K/uL Eos # (Auto) (0-0.5) K/uL Baso # (Auto) (0-0.2) K/uL Immature Gran # (Auto) (0.00-0.02) K/uL Platelet Estimate (Normal) PT (9.0-12.0) Seconds INR (0.9-1.1) Sodium (136-145) mmol/L Potassium (3.5-5.1) mmol/L Chloride (98-107) mmol/L Carbon Dioxide (21-32) mmol/L Anion Gap (3-11) BUN (7-18) mg/dl Creatinine (0.6-1.4) mg/dl Est Cr Clr Drug Dosing Est GFR ( Amer) Est GFR (Non-Af Amer) BUN/Creatinine Ratio (10-20) Glucose (70-99) mg/dl Lactate 4.5 H* (0.4-2.0) mmol/L Calcium (8.5-10.1) mg/dl Total Bilirubin (0.2-1) mg/dl AST (15-37) U/L ALT (12-78) U/L Alkaline Phosphatase (45-117) U/L Ammonia (11-32) umol/L Total Creatine Kinase (39-308) U/L Troponin I (0-0.045) ng/ml Total Protein (6.4-8.2) gm/dl Albumin (3.4-5.0) gm/dl Globulin (2.5-4.0) gm/dl Albumin/Globulin Ratio (0.9-2) TSH (0.300-4.500) uIu/ml Urine Color Urine Appearance (Clear) Urine pH (4.5-7.5) Ur Specific [place] (1.000-1.030) Urine Protein (Negative) Urine Glucose (UA) (Negative) Urine Ketones (Negative) Urine Blood (Negative) Urine Nitrite (Negative) Urine Bilirubin (Negative) Urine Urobilinogen (Negative) Ur Leukocyte Esterase (Negative) Urine WBC (Auto) (0-5) /hpf Urine RBC (Auto) (0-4) /hpf U Hyaline Cast (Auto) (0-5) /lpf U Epithel Cells (Auto) (0-5) /lpf Urine Bacteria (Auto) (Negative) Ethyl Alcohol mg/dL 241.0 H (0-3) mg/dl Imaging Data Radiologist's Impression: XR chest 1V portable CLINICAL HISTORY: weakness COMPARISON STUDY: 12/12/2017 FINDINGS: The heart is enlarged. There is mild pulmonary vascular congestion. There is stable left mid lung zone atelectasis/scarring. There is no acute parenchymal consolidation.[ IMPRESSION: Cardiomegaly and persistent mild pulmonary vascular congestion. No evidence of lobar consolidation ACT 112: Negative or not required by law. Electronically signed by: Kvng Lynch M.D. 05/27/2020 7:03 PM Dictated: 05/27/[id number]: 05/27/201902 CT head/brain wo con CLINICAL HISTORY: Acute change in mental status COMPARISON STUDY: No previous studies for comparison. TECHNIQUE: Axial CT of the brain is performed from the vertex to the skull base. IV contrast was not administered for this examination. A dose lowering te chnique was utilized adhering to the principles of ALARA. CT DOSE: 884.08 mGy.cm FINDINGS: No intra or extra-axial mass lesions are visualized. There is no CT evidence of acute cortical infarction. There is no evidence of midline shift. There is no acute hemorrhage. No calvarial fractures are visualized. There are minimal white matter hypodensities likely on a small vessel basis. There is no evidence of pathologic ventricular dilatation. There are involutional changes. There is no evidence of acute sinusitis IMPRESSION: No acute intracranial findings ACT 112: Negative or not required by law. Electronically signed by: Kvng Lynch M.D. 05/27/2020 6:56 PM Dictated: 05/27/[id number]: 05/27/201854 ECG Data Attestation: I personally reviewed and interpreted this ECG as follows: Indication: + altered mental status Rate (beats per minute): 74 Rhythm: + normal sinus ECG Intervals/blocks: + Left anterior fascicular block ECG [place]: + Left axis deviation ECG ST segments: + Normal ST segments and + repolarization abnormalities (inferior) ECG Findings: + Poor R wave progression and + LVH Blood Pressure Blood Pressure Findings: Elevated blood pressure Blood Pressure Disposition: further management by hospitalist MDM Narrative This pt was evaluated and appeared to be in no distress. IV access was obtained and lab workl was drawn. An order for cardiac monitoring was placed and the pt was noted to be in a NSR at 66 bpm. Pt was hydrated with NSS, he was unable to follow commands or to remain still for CT. He was given Ativan for sedation and tolerated it well. Lab work reveals an elevated lactate but normal WBC, ETOH of 241 with ammonia of 45. CT head was negative for acute process and CXR revealed cardiomegaly and congestion. Pt's case was d/w the hospitalist service as he will require hours to detox from ETOH and may withdrawal. I did speak with his contact friend, Can, who had little to add to the history except pt h as no family. Pt remained sedate, but otherwise stable. He will be evaluated for further management. Impression & Plan Altered mental status, Alcohol intoxication, Diabetes type 2, uncontrolled, Hyperglycemia, Hyperammonemia Discharge Plan Visit Data Chief Complaint: Altered Mental Status Stated Complaint: ALTERED MENTAL STATUS ED Provider: Tessa De Paz Discharge Problem: Altered mental status, Alcohol intoxication, Diabetes type 2, uncontrolled, Hyperglycemia, Hyperammonemia Patient Disposition: Admitted As Inpatient Discharge Instructions Interventions: ED Discharge Assessment Last Done: 05/27/20 21:36 Discharge Problem: Altered mental status Qualifiers: Altered mental status type: delirium Qualified Code(s): R41.0 - Disorientation, unspecified Alcohol intoxication Qualifiers: Complication of substance-induced condition: with delirium Qualified Code(s): F10.921 - Alcohol use, unspecified with intoxication delirium Diabetes type 2, uncontrolled Qualifiers: Glycemic state: with hyperglycemia Qualified Code(s): E11.65 - Type 2 diabetes mellitus with hyperglycemia
--- NOTE | 2020-05-31 09:25 | Coding Query ---
CODING QUERY To promote full compliance with coding requirements relating to patient care, provider participation is requested in all cases of daycare provider uncertainty. Please assist us with the question(s) below: Coding Question(s): The H&P documents, "Alcohol intoxication/withdrawal" and, "AWSS protocol" and the Discharge Summary documents likely alcohol intoxication. Please specify below in your clinical opinion. ( ) Alcohol Intoxication and Alcohol Withdrawal. Please specify further below: ( ) Alcohol Use ( ) Alcohol Abuse ( ) Alcohol Dependence ( ) Other: Please Specify ( ) Alcohol Intoxication with No Alcohol Withdrawal. Please specify further below: ( ) Alcohol Use ( x ) Alcohol Abuse ( ) Alcohol Dependence ( ) Other: Please Specify ( ) Other: Please Specify . Please specify further below: ( ) Alcohol Use ( ) Alcohol Abuse ( ) Alcohol Dependence ( ) Other: Please Specify Physician's Response(s): Thank you Nelida Horton Principal Diagnosis: "that condition established after study, to be chiefly responsible for occasioning the admission of the patient to the hospital for care." Co-Existing Principal Diagnosis: "when two or more diagnoses equally meet the criteria for principal diagnosis as determined by the circumstances of admission, diagnostic work up, and/or therapy provided, and the Alphabetic Index, Tabular List, or another coding guideline does not provide sequencing direction, any one of the diagnoses may be sequenced first." "When the physician has documented what appears to be a current diagnosis in the body of the record, but has not included the diagnosis in the final diagnostic statement, the physician should be asked whether the diagnosis should be added." (Source Coding [facility] 2 QTR90. p3-4) MTDD
== END 2020-05-28 17:58 | disposition home or self-care (01) ==
LOC: ED 17:27 → 2N 21:04 → SUATTDRO 21:04 → INTOOBSV 21:04 → 2N 21:36

== ENCOUNTER 2022-04-20 03:16 | Observation (INO) ==
[2022-04-20] MEDS ORDERED: dilTIAZem HCl 5 MG/ML 5 ML VIAL IV ONE (03:43)
[2022-04-20 04:19] LABS: Albumin Globulin Ratio 1.2 (0.9-2); BUN Creatinine Ratio 18.7 (10-20); Bilirubin,Total 3.2 mg/dl (0.2-1.0); Calcium 9.4 mg/dl (8.5-10.1); Creatinine Clr Calc Pharmacy 46.6 ml/min; Est GFR (African American) 45.4 ml/min; Est GFR (Non-African American) 39.2 ml/min; Globulin 3.4 gm/dl (2.5-4.0); Magnesium 1.2 mg/dl (1.7-2.4); Potassium 4.7 mmol/L (3.5-5.1); Total Protein 7.4 gm/dl (6.0-8.3)
[2022-04-20 04:28] LABS: Basophils # (auto) 0.04 K/uL (0-0.2); Basophils % (auto) 0.8 %; Eosinophils # (auto) 0.07 K/uL (0-0.50); Eosinophils % (auto) 1.5 %; Hematocrit (blood only) 36.2 % (40.1-51.0); Immature Granulocytes # (auto) 0.01 K/uL (0.00-0.02); Immature Granulocytes % (auto) 0.2 %; Lymphocytes # (auto) 0.91 K/uL (1.2-3.4); Lymphocytes % (auto) 19.2 %; Mean Corpuscular Hemoglobin 39.5 pg (25.0-34.0); Mean Corpuscular Hgb Conc 35.9 g/dL (32.0-36.0); Mean Platelet Volume 11.2 fL (9.4-12.4); Monocytes # (auto) 0.58 K/uL (0.24-0.82); Monocytes % (auto) 12.2 %; Neutrophils # (auto) 3.14 K/uL (1.4-6.5); Neutrophils % (auto) 66.1 %; Platelet Count 68 K/uL (130-400); Platelet Estimate Decreased (Normal); RDW Coefficient of Variation 14.6 % (11.5-14.5); RDW Standard Deviation 57.8 fL (36.4-46.3); Red Blood Count 3.29 M/uL (4.63-6.08); White Blood Count 4.75 K/ul (4.8-10.8)
[2022-04-20 04:32] LABS: Thyroid Stimulating Hormone 13.26 uIu/ml (0.300-4.500)
[2022-04-20 05:05] LABS: T4 Free Thyroxine 0.81 ng/dl (0.61-1.60)
--- NOTE | 2022-04-20 05:11 | Emergency Department Note ---
Impression & Plan Atrial fibrillation with rapid ventricular response, ARMANDO (acute kidney injury), [facility] NAME: JO-ANN BAIRD AGE: 76 SEX: M ARRIVES VIA: Walk-In INFORMANT: Patient ED PROVIDER(S): Allison Nobles DO CHIEF COMPLAINT: Shortness of breath PLAN: Disposition: Admit to the medical he has Condition: Fair MEDICAL DECISION MAKING: This is a 76-year-old male patient who presents to the emergency department with increasing shortness of breath over the past 2 weeks. Patient was unable to sleep tonight and has worsening orthopnea. Patient was noted to be in atrial fibrillation with rapid ventricular response. Chest x-ray shows evidence of cardiomegaly with pulmonary vascular congestion. Patient has increasing lower extremity edema. Patient's creatinine has increased from previous laboratory values. It is unclear whether the patient is taking his medications correctly at home. Triage Nursing notes reviewed and agree with them. Prior medical records reviewed Vital Signs: reviewed and remarkable for hypertension and tachycardia Differential diagnosis: CHF, cardiac ischemia, cardiac dysrhythmia Diagnostics interpreted by me: ECG: A. fib with RVR at a rate of 151. There was a couplet noted. Cardiac Monitoring: A. fib with RVR at a rate of 156 Laboratory studies: See below Imaging studies: As per my interpretation Portable chest x-ray: Cardiomegaly with congestive heart failure HPI: 76/M arrives for evaluation of shortness of breath. Patient describes hav ing increasing shortness of breath over the past 2 weeks. He became more concerned tonight as he was unable to lie flat to sleep. With further questioning, it is unclear whether or not the patient is taking his medications correctly. ROS: See above HPI for pertinent positives & negatives. A total of 10 systems reviewed and were otherwise negative. PAST MEDICAL HISTORY:See Below PAST SURGICAL HISTORY:See Below FAMILY HISTORY:See Below SOCIAL HISTORY:See Below HOME MEDICATIONS:See list ALLERGIES:See list VITALS:See Below PHYSICAL EXAMINATION: HEENT: Head - normocephalic and atraumatic. Pupils are equal, round, and reactive to light. Extraocular eye muscles are intact, and sclera are anicteric. Nose - moist nasal mucosa without discharge. Mouth - moist buccal mucosa. Oropharynx is nonerythematous and there is no tonsillar exudate or edema noted. Neck: Supple; no JVD, nuchal rigidity, cervical lymphadenopathy, or auscultated bruits. Heart: Irregularly irregular rhythm with a tachycardic rate. Normal S1 and S2 with no murmurs noted. Lungs: Mild rales at both bases Abdomen: Soft, completely nontender, nondistended, with good bowel sounds. There are no palpable pulsatile masses or hepatosplenomegaly. There is no guarding, rigidity, or rebound noted. Extremities: 2+ pitting edema both lower extremities with moderate peripheral vascular changes noted. There are easily palpable peripheral pulses. Skin: warm and dry with good turgor and no rashes. ED COURSE: Times/Reassessments: 335: The patient was evaluated in room B2. A complete history and physical was performed. An order was placed for continuous cardiac monitoring. Patient was in A. fib with RVR at a rate of 156 initially. A twelve-lead EKG was obtained as described above. A portable chest x-ray was performed. Patient's heart rate came down on its own. O2 saturations were stable. I reviewed the results of the laboratory studies with the patient. I discussed the case with the [facility] Hospitalist. Initially, the patient was thinking about refusing admission to the hospital but then was willing to stay. It was noted that the patient's heart rate rebounded back up into the 120s. Allison Nobles DO Past Med/Surg History Medical History (Updated 04/21/22 @ 14:06 by Allison Nobles DO) Anxiety and depression Cirrhosis of liver "ETOH RELATED" Diabetes type 2, uncontrolled Dyslipidemia Former smoker Hepatic steatosis History of diverticulosis Hx of duodenal ulcer Hypertension Hypothyroidism PAC (premature atrial contraction) Poor historian PVC (premature ventricular contraction) Sinus bradycardia Tubular adenoma of colon Varices, gastric Surgical History H/O umbilical hernia repair History of colonoscopy History of esophagogastroduodenoscopy (EGD) History of tooth extraction S/P cataract surgery b/l. 2019 Family History Sister Carotid arterial disease Family history of diabetes mellitus Mother Family history of diabetes mellitus Ovarian cancer Father Myocardial infarction possible heart attack Denies family history of Prostate cancer Breast cancer Colorectal cancer Social History Smoking Status: Current some day smoker Age Started Using Tobacco: 17; Age Quit Using Tobacco: 29; packs per day: 1; Cigarettes Per Day: 20; Second Hand Exposure: No; Hx Alcohol Use: Yes Alcohol type: beer Alcohol Intake Frequency: Monthly or Less Hx Substance Use: No Preferred Language: Mauritian Communication Ability: Effective Visual Impairment: Limited Hearing Ability: Use of Hearing Aid [place] Required: No Beliefs That Will Affect Care: None marital status: / Current Living Situation: Alone Current Living Situation Comment: States Can will help with any needs current occupational status: retired How many Children do You have: 0 Feels Safe at Home: Yes Childhood Exposure to Second-Hand Smoke: No caffeine: Yes (soda) Dental Care, Regularly: Yes Physical Activity Frequency: Does not Exercise Seatbelt Use: always Sunscreen Use: No Assistive Devices: Glasses Allergies Allergies Allergy/AdvReac Type Severity Reaction Status Date / Time lisinopril AdvReac Mild Erectile Verified 11/04/21 13:22 Dysfunction Home Meds Home Medications Medication Instructions Recorded Confirmed cholecalciferol (vitamin D3) 50 2,000 units PO DAILY 01/04/19 11/04/21 mcg (2,000 unit) capsule multivitamin 1 tab PO DAILY 01/04/19 11/04/21 flaxseed oil 1,000 mg capsule 1,200 mg PO DAILY 08/26/21 11/04/21 Previous Rx's Medication Instructions Recorded insulin glargine 100 unit/mL 60 units (0.6 mL) subcut BID #140 10/02/19 subcutaneous solution (Lantus mL U-100 Insulin) fluticasone propionate 50 2 spray intranasal DAILY PRN 01/07/21 mcg/actuation nasal allergy symptoms #16 grams spray,suspension blood sugar diagnostic (Contour #100 ea 02/28/21 Test Strips) blood sugar diagnostic (FreeStyle #100 ea 03/03/21 Lite Strips) blood-glucose meter (FreeStyle #1 ea 03/03/21 Lite Meter kit) lancets 28 gauge (FreeStyle #100 ea 03/03/21 Lancets) buspirone 10 mg tablet 10 mg PO BID #180 tabs 03/17/21 insulin regular human 100 unit/mL 60 unit (0.6 mL) subcut BIDM #10 mL 11/16/21 injection solution (Novolin R Regular U-100 Insulin) albuterol sulfate 90 mcg/actuation 1 - 2 puff inhalation Q4H PRN 08/18/21 aerosol inhaler SHORT OF BREATH #8.5 grams magnesium citrate 100 mg tablet 100 mg PO DAILY #30 tabs 08/26/21 milk thistle 175 mg tablet 175 mg PO DAILY #60 tabs 08/26/21 omeprazole 20 mg capsule,delayed 20 mg PO DAILY #90 caps 12/05/21 release atorvastatin 10 mg tablet 10 mg PO DAILY #90 tabs 02/19/22 levothyroxine 125 mcg tablet 125 mcg PO DAILY #60 tabs 02/19/22 insulin syringe-needle U-100 1 mL #300 ea 04/14/22 31 gauge x 5/16" (BD Insulin Syringe Ultra-Fine) metformin 1,000 mg tablet See Rx Instructions .Route 04/14/22 .COMPLEX #180 tabs apixaban 5 mg tablet (Eliquis) 5 mg PO BID #60 tabs 04/21/22 metoprolol succinate 50 mg 50 mg PO BID #60 tabs 04/21/22 tablet,extended release 24 hr Results & Data (ED) Vital Signs Vital Signs - 24 hr 04/20/22 03:22 04/20/22 03:50 04/20/22 03:51 Temperature 37.8 C H Temperature Source Temporal Artery Scan Pulse Rate 156 H Respiratory Rate 20 Respiratory Effort / Characteristics Short of Breath Short of Breath SOB on Exertion Respiratory Pattern Regular Blood Pressure 116/83 Blood Pressure Mean 94 Pulse Oximetry 97 97 Oxygen Delivery Method Room Air Room Air Sepsis Recent Fever Within 48 Hours No Sepsis New/Unexplained Change in Mental Status No Sepsis Action Taken by Nursing No Action Required Laboratory Data Result diagrams: 04/21/22 05:04 04/21/22 05:04 Lab Results 04/20/22 04/20/22 04/20/22 Range/Units 03:40 03:40 03:40 WBC 4.75 L (4.8-10.8) K/ul RBC 3.29 L (4.63-6.08) M/uL Hgb 13.0 L (14.0-18.0) g/dl Hct 36.2 L (40.1-51.0) % MCV 110.0 H (80.0-100.0) fL MCH 39.5 H (25.0-34.0) pg MCHC 35.9 (32.0-36.0) g/dL RDW Std Deviation 57.8 H (36.4-46.3) fL RDW Coeff of Nuris 14.6 H (11.5-14.5) % Plt Count 68 L (130-400) K/uL MPV 11.2 (9.4-12.4) fL Immature Gran % (Auto) 0.2 % Neut % (Auto) 66.1 % Lymph % (Auto) 19.2 % [place] % (Auto) 12.2 % Eos % (Auto) 1.5 % Baso % (Auto) 0.8 % Neut # (Auto) 3.14 (1.4-6.5) K/uL Lymph # (Auto) 0.91 L (1.2-3.4) K/uL [place] # (Auto) 0.58 (0.24-0.82) K/uL Eos # (Auto) 0.07 (0-0.50) K/uL Baso # (Auto) 0.04 (0-0.2) K/uL Immature Gran # (Auto) 0.01 (0.00-0.02) K/uL Platelet Estimate Decreased L (Normal) Sodium 141 (136-145) mmol/L Potassium 4.7 (3.5-5.1) mmol/L Chloride 109 H (98-107) mmol/L Carbon Dioxide 21 (21-32) mmol/L Anion Gap 11 (3-11) BUN 31 H (6-23) mg/dl Creatinine 1.66 H (0.6-1.4) mg/dl Est Cr Clr Drug Dosing 46.6 ml/min Est GFR ( Amer) 45.4 ml/min Est GFR (Non-Af Amer) 39.2 ml/min BUN/Creatinine Ratio 18.7 (10-20) Glucose 158 H (70-99(Fasting)) mg/dl Calcium 9.4 (8.5-10.1) mg/dl Magnesium 1.2 L (1.7-2.4) mg/dl Total Bilirubin 3.2 H (0.2-1.0) mg/dl AST 36 (13-39) U/L ALT 29 (7-52) U/L Alkaline Phosphatase 72 (34-104) U/L Troponin I High Sens 36.5 H D (0-20) pg/ml Total Protein 7.4 (6.0-8.3) gm/dl Albumin 4.0 (3.4-5.0) gm/dl Globulin 3.4 (2.5-4.0) gm/dl Albumin/Globulin Ratio 1.2 (0.9-2) TSH 13.260 H (0.300-4.500) uIu/ml Free T4 0.81 (0.61-1.60) ng/dl SARS-CoV-2, RNA, NAAT (NEGATIVE) 04/20/22 Range/Units 03:50 WBC (4.8-10.8) K/ul RBC (4.63-6.08) M/uL Hgb (14.0-18.0) g/dl Hct (40.1-51.0) % MCV (80.0-100.0) fL MCH (25.0-34.0) pg MCHC (32.0-36.0) g/dL RDW Std Deviation (36.4-46.3) fL RDW Coeff of Nuris (11.5-14.5) % Plt Count (130-400) K/uL MPV (9.4-12.4) fL Immature Gran % (Auto) % Neut % (Auto) % Lymph % (Auto) % [place] % (Auto) % Eos % (Auto) % Baso % (Auto) % Neut # (Auto) (1.4-6.5) K/uL Lymph # (Auto) (1.2-3.4) K/uL [place] # (Auto) (0.24-0.82) K/uL Eos # (Auto) (0-0.50) K/uL Baso # (Auto) (0-0.2) K/uL Immature Gran # (Auto) (0.00-0.02) K/uL Platelet Estimate (Normal) Sodium (136-145) mmol/L Potassium (3.5-5.1) mmol/L Chloride (98-107) mmol/L Carbon Dioxide (21-32) mmol/L Anion Gap (3-11) BUN (6-23) mg/dl Creatinine (0.6-1.4) mg/dl Est Cr Clr Drug Dosing ml/min Est GFR ( Amer) ml/min Est GFR (Non-Af Amer) ml/min BUN/Creatinine Ratio (10-20) Glucose (70-99(Fasting)) mg/dl Calcium (8.5-10.1) mg/dl Magnesium (1.7-2.4) mg/dl Total Bilirubin (0.2-1.0) mg/dl AST (13-39) U/L ALT (7-52) U/L Alkaline Phosphatase (34-104) U/L Troponin I High Sens (0-20) pg/ml Total Protein (6.0-8.3) gm/dl Albumin (3.4-5.0) gm/dl Globulin (2.5-4.0) gm/dl Albumin/Globulin Ratio (0.9-2) TSH (0.300-4.500) uIu/ml Free T4 (0.61-1.60) ng/dl SARS-CoV-2, RNA, NAAT NEGATIVE (NEGATIVE) Administered Medications Discontinued Medications Apixaban (Apixaban 5 Mg Tablet) 5 mg PO BID JESSY Stop: 05/21/22 10:59 Last Admin: 04/21/22 12:21 Dose: 5 mg Documented By: RODRIGO Atorvastatin Calcium (Atorvastatin 10 Mg Tab) 10 mg PO DAILY JESSY Stop: 05/20/22 08:59 Last Admin: 04/21/22 09:48 Dose: 10 mg Documented By: Admin: 04/20/22 10:00 Dose: 10 mg Documented By: BEV Buspirone HCl (Buspirone 5 Mg Tab) 10 mg PO BID JESSY Stop: 05/20/22 08:59 Last Admin: 04/21/22 09:48 Dose: 10 mg Documented By: Admin: 04/20/22 20:30 Dose: 10 mg Documented By: Admin: 04/20/22 10:01 Dose: 10 mg Documented By: BEV Diltiazem HCl (Diltiazem Hcl 5 Mg/Ml 5 Ml Vial) Confirm Administered Dose 25 mg IV .STK-MED ONE Stop: 04/20/22 03:44 Last Increment: 04/20/22 03:53 Dose: 20 mg Documented By: ILDA Co-signed By: ZOIE Furosemide (Furosemide 40 Mg/4 Ml Vial) 40 mg IV ONE ONE Stop: 04/20/22 13:45 Last Admin: 04/20/22 14:39 Dose: 40 mg Documented By: BEV Magnesium Sulfate/Dextrose (Magnesium Sulfate / D5w) 1 gm in 100 mls @ 50 mls/hr IV Q2H JESSY Stop: 04/20/22 11:59 Last Infusion: 04/20/22 10:37 Dose: 0 mls/hr Documented By: Admin: 04/20/22 07:57 Dose: 50 mls/hr Documented By: Infusion: 04/20/22 07:57 Dose: 50 mls/hr Documented By: Admin: 04/20/22 06:54 Dose: 50 mls/hr Documented By: Infusion: 04/20/22 06:54 Dose: 50 mls/hr Documented By: Admin: 04/20/22 06:08 Dose: 50 mls/hr Documented By: ILDA Heparin Sodium/Dextrose (Heparin Sodium/Dextrose) 25,000 units in 500 mls @ 23 mls/hr IV .[id number] JESSY; Protocol Stop: 05/20/22 15:59 Last Titration: 04/21/22 11:10 Dose: 0 units/hr, 0 mls/hr Documented By: RODRIGO Co-signed By: SARA Titration: 04/21/22 08:20 Dose: 1,150 units/hr, 23 mls/hr Documented By: RODRIGO Co-signed By: SMM Titration: 04/21/22 06:55 Dose: 0 units/hr, 0 mls/hr Documented By: MAINOR Co-signed By: RODRIGO Titration: 04/21/22 06:25 Dose: 0 units/hr, 0 mls/hr Documented By: MAINOR Co-signed By: CLAUDETTE Titration: 04/20/22 23:05 Dose: 1,700 units/hr, 34 mls/hr Documented By: MAINOR Co-signed By: CLAUDETTE Admin: 04/20/22 15:51 Dose: 1,600 units/hr, 32 mls/hr Documented By: HERNANDEZ Co-signed By: JAYNE Magnesium Sulfate/Dextrose (Magnesium Sulfate / D5w) 1 gm in 100 mls @ 50 mls/hr IV Q2H JESSY Stop: 04/21/22 13:59 Last Infusion: 04/21/22 12:05 Dose: 0 mls/hr Documented By: Admin: 04/21/22 11:35 Dose: Not Given Documented By: Admin: 04/21/22 11:35 Dose: Not Given Documented By: Admin: 04/21/22 09:51 Dose: 50 mls/hr Documented By: RODRIGO Insulin Aspart (Insulin Aspart Per Unit) 0 units SC ACHS [facility] Stop: 05/20/22 08:47 Last Admin: 04/21/22 13:09 Dose: Not Given Documented By: Admin: 04/21/22 09:45 Dose: 6 units Documented By: RODRIGO Co-signed By: SARA Admin: 04/20/22 20:30 Dose: 1 units Documented By: MAINOR Co-signed By: ESTELA Admin: 04/20/22 18:35 Dose: 6 units Documented By: HERNANDEZ Co-signed By: JAYNE Admin: 04/20/22 14:39 Dose: 5 units Documented By: BEV Co-signed By: MARION Admin: 04/20/22 09:56 Dose: Not Given Documented By: BEV Insulin Aspart (Insulin Aspart Per Unit) 0 units SC [id number] [facility] Stop: 04/21/22 04:01 Last Admin: 04/21/22 04:10 Dose: Not Given Documented By: Admin: 04/20/22 23:22 Dose: Not Given Documented By: MAINOR Insulin Glargine (Lantus Per Unit Charge) 0 units SQ HS [facility]; Protocol Stop: 05/20/22 20:59 Last Admin: 04/20/22 20:35 Dose: 5 units Documented By: MAINOR Co-signed By: ESTELA Levothyroxine Sodium (Levothyroxine Sodium 125 Mcg Tablet) 125 mcg PO DAILY [facility] Stop: 05/20/22 08:59 Last Admin: 04/21/22 09:48 Dose: 125 mcg Documented By: Admin: 04/20/22 10:03 Dose: 125 mcg Documented By: BEV Metoprolol Succinate (Metoprolol Succ 25mg Ext Rel Tab) 25 mg PO DAILY JESSY Stop: 05/20/22 08:59 Last Admin: 04/20/22 10:02 Dose: 25 mg Documented By: BEV Metoprolol Tartrate (Metoprolol Tartrate 25 Mg Tab) 25 mg PO Q6H [facility] Stop: 05/20/22 17:29 Last Admin: 04/21/22 12:22 Dose: 25 mg Documented By: Admin: 04/21/22 05:12 Dose: 25 mg Documented By: Admin: 04/20/22 22:54 Dose: 25 mg Documented By: Admin: 04/20/22 18:17 Dose: 25 mg Documented By: HERNANDEZ Pantoprazole Sodium (Pantoprazole 40 Mg Tab) 40 mg PO DAILY JESSY Stop: 05/20/22 09:14 Last Admin: 04/21/22 09:48 Dose: 40 mg Documented By: Admin: 04/20/22 10:03 Dose: 40 mg Documented By: BEV Vitamin D (Cholecalciferol 1,000 Units 25 Mcg Tab) 2,000 units PO DAILY JESSY Stop: 05/20/22 08:59 Last Admin: 04/21/22 09:48 Dose: 2,000 units Documented By: Admin: 04/20/22 10:02 Dose: 2,000 units Documented By: BEV Discharge Plan Visit Data Chief Complaint: Respiratory Problems Stated Complaint: HAVING TROUBLE BREATHING ED Provider: Allison Nobles Discharge Problem: Atrial fibrillation with rapid ventricular response, ARMANDO (acute kidney injury), Dyspnea Patient Disposition: Admitted As Inpatient Discharge Instructions Interventions: ED Discharge Assessment Last Done: 04/20/22 08:48 : Dyspnea Qualifiers: Dyspnea type: shortness of breath Qualified Code(s): R06.02 - Shortness of breath
[2022-04-20 05:20] LABS: Troponin I High Sensitivity 36.5 pg/ml (0-20)
[2022-04-20] MEDS: MAGNESIUM SULFATE / D5W 1 GM/100 ML BAG IV SCH ×3 (06:08→07:57)
--- NOTE | 2022-04-20 06:51 | History & Physical Report ---
Date of Service April 20, 2022 Assessment & Plan (1) Atrial fibrillation with RVR: Plan: Atrial fibrillation with RVR/elevated troponin/atrial fibrillation history/hypertension- Hold losartan Continue metoprolol succinate 25 mg daily-patient likely has not been taking this medication, as he has not been taking most of his medications Magnesium level 1.2, also not likely taking his magnesium citrate tablets Give magnesium sulfate 3 g IV and recheck laboratories in a.m. Elevated troponin is likely secondary to rapid heart rate, however, will follow serially per protocol (2) Acute kidney injury: Plan: Creatinine 1.66 admission, with base around 1-1.18 Hold losartan Optimize magnesium, would then consider diuresis later Follow BMP and magnesium levels serially (3) Dyslipidemia: Plan: Continue atorvastatin 10 mg daily and flaxseed oil (4) Diabetes type 2, uncontrolled: Plan: I doubt the patient has been taking his insulin as directed either as he is not been taking most of his medications. Outpatient regimen says insulin glargine 60 units subcu twice daily and regular insulin 60 units subcu twice daily His glucose is 158 on admission Due to his medical noncompliance, would recommend not having any long-acting insulin this point at all, and just placed on sliding scale NovoLog If sugars go high can place on long-acting insulin at that point Again patient is very noncompliant with medications would not be aggressive about his sugars at this time, or anything else for that matter (5) Hypothyroidism: Plan: Continue levothyroxine 125 mcg daily TSH is now within range, however, patient admits to not taking most of his medications (6) Cirrhosis of liver: Plan: Liver cirrhosis/fatty liver has been noted on imaging in the past. Reportedly secondary to alcohol abuse in the past Liver tests are normal on admission, and can be followed serially (7) Thrombocytopenia: Plan: Platelets 68 on admission, with range 63-109. Avoiding antiplatelet and anticoagulant medications for now (8) Asthma: (9) Hepatic steatosis: (10) Hypertension: (11) Elevated troponin: (12) Depression with anxiety: Plan: Continue buspirone (13) Subarachnoid hemorrhage: Plan: Voiding antiplatelet agents and anticoagulants until further clarified History of Present Illness Chief Complaint: The patient presents to the emergency department with complaint of atrial fibrillation with rapid rate noted early this morning. Primary Care Provider: Ramakrishna Lozoya DO The patient is a 76-year-old male with a past medical history including atrial fibrillation, hypertension, macrocytic anemia, gross hematuria, pulmonary nodule, subarachnoid hemorrhage, hypertension, as well as type II uncontrolled, dyslipidemia, hypothyroidism, obesity, liver cirrhosis, thrombocytopenia, depression with anxiety, asthma and hepatic steatosis. He reports that he has a bag of pills he is not sure what they are for but he has not taken any in a while. He reports his legs are usually swollen, and the way they are now is by the way they usually are. He does not particularly watch his diet is for salt intake. He reports that he typically does sits around a lot at home does To physical activity and therefore does not get short of breath or dyspnea. Allergies Allergy/AdvReac Type Severity Reaction Status Date / Time lisinopril AdvReac Mild Erectile Verified 11/04/21 13:22 Dysfunction Home Medications Medication Instructions Recorded Confirmed Type cholecalciferol (vitamin D3) 50 2,000 units PO DAILY 01/04/19 11/04/21 History mcg (2,000 unit) capsule multivitamin 1 tab PO DAILY 01/04/19 11/04/21 History insulin glargine 100 unit/mL 60 units (0.6 mL) subcut BID #140 10/02/19 11/04/21 Rx subcutaneous solution (Lantus mL U-100 Insulin) fluticasone propionate 50 2 spray intranasal DAILY PRN 01/07/21 11/04/21 Rx mcg/actuation nasal allergy symptoms #16 grams spray,suspension blood sugar diagnostic (Contour #100 ea 02/28/21 11/04/21 Rx Test Strips) blood sugar diagnostic (FreeStyle #100 ea 03/03/21 11/04/21 Rx Lite Strips) blood-glucose meter (FreeStyle #1 ea 03/03/21 11/04/21 Rx Lite Meter kit) lancets 28 gauge (FreeStyle #100 ea 03/03/21 11/04/21 Rx Lancets) buspirone 10 mg tablet 10 mg PO BID #180 tabs 03/17/21 11/04/21 Rx insulin regular human 100 unit/mL 60 unit (0.6 mL) subcut BIDM #10 mL 04/08/21 11/04/21 Rx injection solution (Novolin R Regular U-100 Insulin) albuterol sulfate 90 mcg/actuation 1 - 2 puff inhalation Q4H PRN 08/18/21 11/04/21 Rx aerosol inhaler SHORT OF BREATH #8.5 grams flaxseed oil 1,000 mg capsule 1,200 mg PO DAILY 08/26/21 11/04/21 History magnesium citrate 100 mg tablet 100 mg PO DAILY #30 tabs 08/26/21 11/04/21 Rx milk thistle 175 mg tablet 175 mg PO DAILY #60 tabs 08/26/21 11/04/21 Rx losartan 25 mg tablet 25 mg PO DAILY #90 tabs 10/08/21 11/04/21 Rx metoprolol succinate 25 mg 25 mg PO DAILY atrial fibrillation 11/27/21 Rx tablet,extended release 24 hr #30 tabs omeprazole 20 mg capsule,delayed 20 mg PO DAILY #90 caps 12/05/21 Rx release atorvastatin 10 mg tablet 10 mg PO DAILY #90 tabs 02/19/22 Rx levothyroxine 125 mcg tablet 125 mcg PO DAILY #60 tabs 02/19/22 Rx insulin syringe-needle U-100 1 mL #300 ea 04/14/22 Rx 31 gauge x 5/16" (BD Insulin Syringe Ultra-Fine) metformin 1,000 mg tablet See Rx Instructions .Route 04/14/22 Rx .COMPLEX #180 tabs Past Med/Surg History Medical History (Updated 04/20/22 @ 06:42 by Ricci Jimenez MD) Anxiety and depression Cirrhosis of liver "ETOH RELATED" Diabetes type 2, uncontrolled Dyslipidemia Former smoker Hepatic steatosis History of diverticulosis Hx of duodenal ulcer Hypertension Hypothyroidism PAC (premature atrial contraction) Poor historian PVC (premature ventricular contraction) Sinus bradycardia Tubular adenoma of colon Varices, gastric Surgical History H/O umbilical hernia repair History of colonoscopy History of esophagogastroduodenoscopy (EGD) History of tooth extraction S/P cataract surgery b/l. 2019 Family History Sister Carotid arterial disease Family history of diabetes mellitus Mother Family history of diabetes mellitus Ovarian cancer Father Myocardial infarction possible heart attack Denies family history of Prostate cancer Breast cancer Colorectal cancer Social History Smoking Status: Never smoker Age Started Using Tobacco: 17; Age Quit Using Tobacco: 29; packs per day: 1; Cigarettes Per Day: 20; Second Hand Exposure: No; Hx Alcohol Use: Yes Alcohol type: beer Alcohol Intake Frequency: Monthly or Less Hx Substance Use: No Preferred Language: [place] Communication Ability: Effective Visual Impairment: Limited Hearing Ability: Use of Hearing Aid Associate Brand Manager Required: No Beliefs That Will Affect Care: None marital status: / Current Living Situation: Alone current occupational status: retired How many Children do You have: 0 Feels Safe at Home: Yes Childhood Exposure to Second-Hand Smoke: No caffeine: Yes (soda) Dental Care, Regularly: Yes Physical Activity Frequency: Does not Exercise Seatbelt Use: always Sunscreen Use: No Assistive Devices: Glasses Review of Systems Review of Systems: The patient denies chest pain, shortness of breath, dyspnea on exertion, cough, sore throat, fevers, chills, sweats, weight change, fatigue, nausea, vomiting, diarrhea , constipation, abdominal pain, pelvic pain, blood in urine or stool, dysuria, urinary frequency or urgency, lightheadedness, dizziness, headache, memory loss, loss of consciousness, rash, abnormal bruising or bleeding, imbalance, focal or generalized weakness, numbness or tingling in arms or legs, generalized arthralgias or myalgias, back or neck pain, or night sweats. The review of systems is otherwise negative other than for that already noted above, and at least 10 systems have been reviewed. Physical Exam Physical Exam: The patient is awake, alert and oriented 3, well developed and well nourished, normocephalic and atraumatic, lying in bed and in no acute distress. HEENT--PERRL, EOMI, mucous membranes and oropharynx HEAD: Normocephalic, no signs of injury or scalp lesions.. Neck--supple. No JVD. No bruits. Thyroid normal, trachea midline, no adenopathy. Heart--irregularly irregular and tachycardic. No murmurs, rubs or gallops. Lungs--few crackles at the bases bilaterally. No respiratory distress, no accessory muscle use. Abdomen--normal bowel sounds and soft. Nontender. Nondistended. Morbidly obese Extremities--no cyanosis or clubbing. 2+ bilateral pretibial pitting edema. There are good distal pulses b/l. Dermatologic--normal skin turgor, normal color, no abnormal lymph nodes, no rash. Neurologic--cranial nerves II through XII grossly intact. Rheumatologic--normal range of motion. Psychiatric--normal affect. Results & Data Results & Data ([facility]) Vital Signs (Past 12 Hours) Vital Signs Temp Pulse Pulse Resp BP BP Pulse Ox 04/20/22 05:00 119 H 20 127/89 98 04/20/22 03:50 97 04/20/22 03:22 37.8 C H 156 H 20 116/83 97 O2 Del Method 04/20/22 05:00 Room Air 04/20/22 03:50 Room Air 04/20/22 03:22 Room Air Laboratory Results Laboratory Results WBC 4.75 K/ul (4.8-10.8) L 04/20/22 03:40 RBC 3.29 M/uL (4.63-6.08) L 04/20/22 03:40 Hgb 13.0 g/dl (14.0-18.0) L 04/20/22 03:40 Hct 36.2 % (40.1-51.0) L 04/20/22 03:40 MCV 110.0 fL (80.0-100.0) H 04/20/22 03:40 MCH 39.5 pg (25.0-34.0) H 04/20/22 03:40 MCHC 35.9 g/dL (32.0-36.0) 04/20/22 03:40 RDW Std Deviation 57.8 fL (36.4-46.3) H 04/20/22 03:40 RDW Coeff of Nuris 14.6 % (11.5-14.5) H 04/20/22 03:40 Plt Count 68 K/uL (130-400) L 04/20/22 03:40 MPV 11.2 fL (9.4-12.4) 04/20/22 03:40 Immature Gran % (Auto) 0.2 % 04/20/22 03:40 Neut % (Auto) 66.1 % 04/20/22 03:40 Lymph % (Auto) 19.2 % 04/20/22 03:40 Franklin % (Auto) 12.2 % 04/20/22 03:40 Eos % (Auto) 1.5 % 04/20/22 03:40 Baso % (Auto) 0.8 % 04/20/22 03:40 Neut # (Auto) 3.14 K/uL (1.4-6.5) 04/20/22 03:40 Lymph # (Auto) 0.91 K/uL (1.2-3.4) L 04/20/22 03:40 Franklin # (Auto) 0.58 K/uL (0.24-0.82) 04/20/22 03:40 Eos # (Auto) 0.07 K/uL (0-0.50) 04/20/22 03:40 Baso # (Auto) 0.04 K/uL (0-0.2) 04/20/22 03:40 Immature Gran # (Auto) 0.01 K/uL (0.00-0.02) 04/20/22 03:40 Platelet Estimate Decreased (Normal) L 04/20/22 03:40 Sodium 141 mmol/L (136-145) 04/20/22 03:40 Potassium 4.7 mmol/L (3.5-5.1) 04/20/22 03:40 Chloride 109 mmol/L (98-107) H 04/20/22 03:40 Carbon Dioxide 21 mmol/L (21-32) 04/20/22 03:40 Anion Gap 11 (3-11) 04/20/22 03:40 BUN 31 mg/dl (6-23) H 04/20/22 03:40 Creatinine 1.66 mg/dl (0.6-1.4) H 04/20/22 03:40 Est Cr Clr Drug Dosing 46.6 ml/min 04/20/22 03:40 Est GFR ( Amer) 45.4 ml/min 04/20/22 03:40 Est GFR (Non-Af Amer) 39.2 ml/min 04/20/22 03:40 BUN/Creatinine Ratio 18.7 (10-20) 04/20/22 03:40 Glucose 158 mg/dl (70-99(Fasting)) H 04/20/22 03:40 Calcium 9.4 mg/dl (8.5-10.1) 04/20/22 03:40 Magnesium 1.2 mg/dl (1.7-2.4) L 04/20/22 03:40 Total Bilirubin 3.2 mg/dl (0.2-1.0) H 04/20/22 03:40 AST 36 U/L (13-39) 04/20/22 03:40 ALT 29 U/L (7-52) 04/20/22 03:40 Alkaline Phosphatase 72 U/L (34-104) 04/20/22 03:40 Troponin I High Sens 36.5 pg/ml (0-20) H D 04/20/22 03:40 Total Protein 7.4 gm/dl (6.0-8.3) 04/20/22 03:40 Albumin 4.0 gm/dl (3.4-5.0) 04/20/22 03:40 Globulin 3.4 gm/dl (2.5-4.0) 04/20/22 03:40 Albumin/Globulin Ratio 1.2 (0.9-2) 04/20/22 03:40 TSH 13.260 uIu/ml (0.300-4.500) H 04/20/22 03:40 Free T4 0.81 ng/dl (0.61-1.60) 04/20/22 03:40 SARS-CoV-2, RNA, NAAT NEGATIVE (NEGATIVE) 04/20/22 03:50 Code Status & VTE Plan Code Status Full code VTE Prophylaxis Plan VTE Prophylaxis will be ordered: Yes (1) Cirrhosis of liver Ascites presence: unspecified Hepatic cirrhosis type: unspecified hepatic cirrhosis Qualified Code(s): K74.60 - Unspecified cirrhosis of liver (2) Diabetes type 2, uncontrolled Glycemic state: with hyperglycemia Qualified Code(s): E11.65 - Type 2 diabetes mellitus with hyperglycemia
--- NOTE | 2022-04-20 06:52 | Billing Data ---
Date of Service April 20, 2022 Coding Level of Care Code INT OBSERVATION CARE 70M LVL 3
--- NOTE | 2022-04-20 07:36 | XRay Report ---
SINGLE VIEW CHEST CLINICAL HISTORY: Dyspnea FINDINGS: An AP, portable, upright chest radiograph is compared to study dated 03/12/2022 and correla herminia with chest CT dated 03/03/2022. The heart is enlarged. There is pulmonary vascular congestion. Qu estion trace right pleural effusion with right basilar opacities. No pneumothorax is seen. The skelet al structures are osteopenic. The bony thorax is grossly intact. Arthritic changes noted in the right shoulder. IMPRESSION: 1. Cardiomegaly with pulmonary vascular congestion. 2. Trace right pleural effusion with right basilar opacities ACT 112: Negative or not required by law. Electronically signed by: Ankur Valencia M.D. 04/20/2022 7:35 AM
[2022-04-20] MEDS ORDERED: GLUCOSE 10 TAB/TUBE PO PRN (08:48)
[2022-04-20] MEDS ORDERED: CARBOHYDRATES FOR HYPOGLYCEMIA PO PRN (08:48)
[2022-04-20] MEDS ORDERED: GLUCAGON FOR INJ 1 MG VIAL SQ PRN (08:48)
[2022-04-20] MEDS ORDERED: GLUCOSE 40% GEL 15 GM TUBE PO PRN (08:48)
[2022-04-20] MEDS ORDERED: DEXTROSE 50% 50 ML SYRINGE IV PRN (08:48)
[2022-04-20] MEDS ORDERED: ONDANSETRON INJ 2 MG/ML 2 ML VIAL IV PRN (08:48)
[2022-04-20] MEDS ORDERED: ACETAMINOPHEN 325 MG TAB PO PRN (08:48)
[2022-04-20] MEDS ORDERED: METOPROLOL SUCC 25MG EXT REL TAB PO SCH (09:00)
[2022-04-20] MEDS: INSULIN ASPART PER UNIT SC SCH ×5 (09:56→23:22)
[2022-04-20] MEDS: ATORVASTATIN 10 MG TAB PO SCH (10:00)
[2022-04-20] MEDS: busPIRone 5 MG TAB PO SCH ×2 (10:01→20:30)
[2022-04-20] MEDS: CHOLECALCIFEROL 1,000 UNITS 25 MCG TAB PO SCH (10:02)
[2022-04-20] MEDS: LEVOTHYROXINE SODIUM 125 MCG TABLET PO SCH (10:03)
[2022-04-20] MEDS: PANTOprazole 40 MG TAB PO SCH (10:03)
--- NOTE | 2022-04-20 10:50 | Electrocardiogram Report ---
Test Reason : Blood Pressure : / mmHG Vent. Rate : 151 BPM Atrial Rate : 159 BPM P-R Int : 000 ms QRS Dur : 094 ms QT Int : 302 ms P-R-T Axes : 000 -64 082 degrees QTc Int : 478 ms Atrial fibrillation with rapid ventricular response with premature ventricular or aberrantly conducte d complexes Left axis deviation Low voltage QRS Incomplete right bundle branch block Cannot rule out Anterior infarct (cited on or before 12-MAR-2022) Abnormal ECG When compared with ECG of 12-MAR-2022 14:22, Vent. rate has increased BY 50 BPM Nonspecific T wave abnormality no longer evident in Inferior leads Nonspecific T wave abnormality, improved in Anterolateral leads Confirmed by Sukh Lucas ([id number]) on 04/20/2022 10:50:24 AM Referred By: REFERRED SELF Confirmed By:Win Lucas
--- NOTE | 2022-04-20 12:24 | XCELERA ---
[id number]
[2022-04-20] MEDS ORDERED: PHARMACY GLYCEMIC MGMT CONSULT PRN (13:40)
[2022-04-20] MEDS ORDERED: FUROSEMIDE 40 MG/4 ML VIAL IV ONE (13:44)
[2022-04-20] MEDS ORDERED: Heparin IV Adult Wt-Based Standard *NO* Bolus Protocol IV SCH (13:55)
--- NOTE | 2022-04-20 14:18 | Pharmacy Report ---
Pharmacy Glycemic Short Note 2 - Date of Service April 20, 2022 - Glycemic Short BSG Results (Last 24 hours): 04/20/22 04/20/22 03:40 12:58 Glucose 158 H POC Glucose 219 H OUTPATIENT ANTIDIABETIC REGIMEN: * *non-compliant* * metformin 1gm PO BID * Lantus 60 units SQ BID (not on fill history) * Regular insulin TIDM HbA1C: __ ASSESSMENT: * Patient being admitted with ARMANDO and AF/RVR. Documented to be non-compliant with outpatient medications including insulin. Pharmacy consulted to assist with inpatient glycemic management. * BSGs 158, 219mg/dL since arrival. Diet ordered. * Plan to initiate Novolog ACHS weight based/stress of 2, and titrate based upon BSGs. Will add an HS scaled Lantus depending on BSGs and reassess basal in AM. PLAN FOR INPATIENT GLYCEMIC CONTROL: * Hold outpatient oral diabetes medications * Basal insulin * Lantus 0-10 units HS depending on BSG * Bolus insulin * NovoLog per scale ACHS or Q6hrs while NPO * Goal Range: Low 110 mg/dL - High 140 mg/dL * Correction Factor: 25 mg/dL/unit * Nutritional / Prandial insulin per carb ratio of 1 unit per 10 grams CHO consumed
[2022-04-20] MEDS ORDERED: HEPARIN SODIUM/DEXTROSE 25,000 UNITS/500 ML BAG IV SCH (16:00)
[2022-04-20 16:22] LABS: INR 1.3 (0.9-1.1); Partial Thromboplastin Ratio 0.9; Partial Thromboplastin Time 25.5 Seconds (21.0-31.0); Prothrombin Time 13.3 Seconds (9.0-12.0)
--- NOTE | 2022-04-20 16:50 | Cardiology Consultation ---
Date of Consultation April 20, 2022 Assessment & Plan (1) Elevated troponin: (2) Atrial fibrillation with RVR: (3) Cardiomyopathy: (4) Congestive heart failure: Plan 1. Elevated troponin: Very mild elevation. More likely related to his cardiomyopathy and decompensated heart failure than acute coronary syndrome. I do not think he requires any ischemic evaluation on this basis alone. I would not treat him for an NSTEMI based on this mild elevation. 2. Atrial fibrillation: He has a known history of atrial fibrillation. He is not overtly symptomatic. He is not known to have palpitations or elevated heart rates at home. This may account for some decompensated heart failure based on the elevated rates. He is on metoprolol succinate at home. Think we will intensify his beta-teresa regimen in the hopes of achieving reasonable rate control. Question of anticoagulation is more difficult. He certainly has risk factors for stroke in generally would be advised to start anticoagulation. However, he has also has a history of subarachnoid hemorrhage associated with falling, cirrhosis and chronic thrombocytopenia. Currently on heparin infusion. We will need to discuss anticoagulation in more detail with the patient and also discussed the importance of compliance with such therapy. 3. Cardiomyopathy: He is known to have reduced LV systolic function an echocardiogram earlier this year demonstrated poor LV function. Unclear etiology. Certainly could be related to coronary artery disease given his demographic. However, he did not report symptoms of coronary insufficiency or angina. Very possibly related to alcohol abuse or even atrial fibrillation with poorly controlled rates. He does seem to have an element of biventricular failure which would be more consistent with a nonischemic etiology. We will increase his metoprolol in convert him to metoprolol succinate prior to discharge. Ideally he would be on Dominic, ARB or Entresto but he has an element of renal insufficiency currently. This can be deferred in the immediate term. Given his history of cirrhosis he would likely benefit from being on spironolactone both from the standpoint of his liver disease as well as his cardiomyopathy. Would also advocate institution of Jardiance or Farxiga. Once he is better compensated we can discuss the options for evaluation of his coronaries. Ideally he would undergo catheterization. 4. Congestive heart failure: He has significant peripheral edema. This may be related to his liver disease in addition to his cardiomyopathy. He would likely benefit from diuresis at this point. We will need to monitor his electrolytes and renal function closely. History of Present Illness Reason for Consultation: Edema, CHF Requesting Physician: Margi Attending Physician: Silvestre Kiser MD History of Present Illness The patient is a 76-year-old gentleman with a prior history of atrial fibrillation who presents to the hospital with symptoms of edema and breathing difficulty. Patient states that over the past month he has had progressively worsening dyspnea. It has progressed to the point now where he just going to his mailbox and back causes need to be severely short of breath. He is also very fatigued. States that he has chronic edema and he is not aware of any worsening recently. He does not feel as if his abdomen is distended. He has not had symptoms of chest discomfort associated with his dyspnea. He denies any sense of palpitation or racing heartbeat. He does have some chronic dizziness and lightheadedness. Some this appears to be orthostatic in nature. He ambulates with a cane on occasion. He performed little activity recently. There was some concern about compliance with medication. He states he may miss some medicines once in a while. There has been some concern in the past about alcohol use any states that he still drinks reno on occasion. His initial evaluation demonstrated significant peripheral edema and atrial fibrillation with rapid ventricular rate. Chest x-ray demonstrated cardiomegaly with pulmonary vascular congestion. An echocardiogram performed today also revealed severely reduced LV systolic function. Allergies Allergy/AdvReac Type Severity Reaction Status Date / Time lisinopril AdvReac Mild Erectile Verified 11/04/21 13:22 Dysfunction Home Medications Medication Instructions Recorded Confirmed Type cholecalciferol (vitamin D3) 50 2,000 units PO DAILY 01/04/19 11/04/21 History mcg (2,000 unit) capsule multivitamin 1 tab PO DAILY 01/04/19 11/04/21 History insulin glargine 100 unit/mL 60 units (0.6 mL) subcut BID #140 10/02/19 11/04/21 Rx subcutaneous solution (Lantus mL U-100 Insulin) fluticasone propionate 50 2 spray intranasal DAILY PRN 01/07/21 11/04/21 Rx mcg/actuation nasal allergy symptoms #16 grams spray,suspension blood sugar diagnostic (Contour #100 ea 02/28/21 11/04/21 Rx Test Strips) blood sugar diagnostic (FreeStyle #100 ea 03/03/21 11/04/21 Rx Lite Strips) blood-glucose meter (FreeStyle #1 ea 03/03/21 11/04/21 Rx Lite Meter kit) lancets 28 gauge (FreeStyle #100 ea 03/03/21 11/04/21 Rx Lancets) buspirone 10 mg tablet 10 mg PO BID #180 tabs 03/17/21 11/04/21 Rx insulin regular human 100 unit/mL 60 unit (0.6 mL) subcut BIDM #10 mL 04/08/21 11/04/21 Rx injection solution (Novolin R Regular U-100 Insulin) albuterol sulfate 90 mcg/actuation 1 - 2 puff inhalation Q4H PRN 08/18/21 11/04/21 Rx aerosol inhaler SHORT OF BREATH #8.5 grams flaxseed oil 1,000 mg capsule 1,200 mg PO DAILY 08/26/21 11/04/21 History magnesium citrate 100 mg tablet 100 mg PO DAILY #30 tabs 08/26/21 11/04/21 Rx milk thistle 175 mg tablet 175 mg PO DAILY #60 tabs 08/26/21 11/04/21 Rx losartan 25 mg tablet 25 mg PO DAILY #90 tabs 10/08/21 11/04/21 Rx metoprolol succinate 25 mg 25 mg PO DAILY atrial fibrillation 11/27/21 Rx tablet,extended release 24 hr #30 tabs omeprazole 20 mg capsule,delayed 20 mg PO DAILY #90 caps 12/05/21 Rx release atorvastatin 10 mg tablet 10 mg PO DAILY #90 tabs 02/19/22 Rx levothyroxine 125 mcg tablet 125 mcg PO DAILY #60 tabs 02/19/22 Rx insulin syringe-needle U-100 1 mL #300 ea 04/14/22 Rx 31 gauge x 5/16" (BD Insulin Syringe Ultra-Fine) metformin 1,000 mg tablet See Rx Instructions .Route 04/14/22 Rx .COMPLEX #180 tabs Patient History Medical History (Updated 04/20/22 @ 17:11 by Sukh Lucas MD) Anxiety and depression Cirrhosis of liver "ETOH RELATED" Diabetes type 2, uncontrolled Dyslipidemia Former smoker Hepatic steatosis History of diverticulosis Hx of duodenal ulcer Hypertension Hypothyroidism PAC (premature atrial contraction) Poor historian PVC (premature ventricular contraction) Sinus bradycardia Tubular adenoma of colon Varices, gastric Surgical History H/O umbilical hernia repair History of colonoscopy History of esophagogastroduodenoscopy (EGD) History of tooth extraction S/P cataract surgery b/l. 2019 Family History Sister Carotid arterial disease Family history of diabetes mellitus Mother Family history of diabetes mellitus Ovarian cancer Father Myocardial infarction possible heart attack Denies family history of Prostate cancer Breast cancer Colorectal cancer Social History Smoking Status: Current some day smoker Age Started Using Tobacco: 17; Age Quit Using Tobacco: 29; packs per day: 1; Cigarettes Per Day: 20; Second Hand Exposure: No; Hx Alcohol Use: Yes Alcohol type: beer Alcohol Intake Frequency: Monthly or Less Hx Substance Use: No Preferred Language: Lao Communication Ability: Effective Visual Impairment: Limited Hearing Ability: Use of Hearing Aid Small Engine Mechanic Required: No Beliefs That Will Affect Care: None marital status: / Current Living Situation: Alone Current Living Situation Comment: States Can will help with any needs current occupational status: retired How many Children do You have: 0 Other Information That Helps Us Care for You: No Feels Safe at Home: Yes Safety Concerns: Feels Safe At This Time Childhood Exposure to Second-Hand Smoke: No caffeine: Yes (soda) Dental Care, Regularly: Yes Physical Activity Frequency: Does not Exercise Seatbelt Use: always Sunscreen Use: No Assistive Devices: Glasses Review of Systems Review of Systems: Per HPI. No recent constitutional symptoms such as Fevers or chills. Physical Exam Physical Exam: The patient is alert and oriented. Mood and affect appeared normal. He answered all questions appropriately. HEENT: Pupils are equal and reactive to light and accommodation. Extraocular movements are intact. The sclerae are anicteric. Neuro: Cranial nerves intact Lungs: Poor excursion overall. Crackles in the bases bilaterally. No expiratory wheezing. Cardiac: Heart demonstrates a regular rate and rhythm. Normal S1 and S2. No murmurs on examination. Pulses: The patient has palpable radial pulses bilaterally that are equal in intensity Abdomen: Mildly distended, but not tense. No tenderness to palpation. Extremities: There was no evidence of hypoperfusion. There is no cyanosis or clubbing. Moderate lower extremity pitting edema with some trophic changes. Skin: I did not appreciate any rashes on examination today. Results & Data ([facility]) Vital Signs (Past 12 Hours) Vital Signs Temp Pulse Pulse Resp BP Pulse Ox Pulse Ox 04/20/22 15:41 112 H 22 95 04/20/22 15:35 94 04/20/22 15:35 101 H 22 98/76 L 94 04/20/22 09:58 04/20/22 09:58 36.7 C 134 H 24 162/117 H 97 04/20/22 07:31 125 H 20 110/85 95 04/20/22 06:56 148 H 20 147/97 H 96 04/20/22 05:00 119 H 20 127/89 98 O2 Del Method O2 Del Method 04/20/22 15:41 Room Air 04/20/22 15:35 Room Air 04/20/22 15:35 Room Air 04/20/22 09:58 Room Air 04/20/22 09:58 Room Air 04/20/22 07:31 Room Air 04/20/22 06:56 Room Air 04/20/22 05:00 Room Air Laboratory Results Abnormal Lab Results 04/20/22 04/20/22 04/20/22 03:40 03:40 03:40 WBC 4.75 L RBC 3.29 L Hgb 13.0 L Hct 36.2 L MCV 110.0 H MCH 39.5 H MCHC 35.9 RDW Std Deviation 57.8 H RDW Coeff of Nuris 14.6 H Plt Count 68 L MPV 11.2 Immature Gran % (Auto) 0.2 Neut % (Auto) 66.1 Lymph % (Auto) 19.2 [place] % (Auto) 12.2 Eos % (Auto) 1.5 Baso % (Auto) 0.8 Neut # (Auto) 3.14 Lymph # (Auto) 0.91 L [place] # (Auto) 0.58 Eos # (Auto) 0.07 Baso # (Auto) 0.04 Immature Gran # (Auto) 0.01 Platelet Estimate Decreased L PT INR APTT PTT Ratio Sodium 141 Potassium 4.7 Chloride 109 H Carbon Dioxide 21 Anion Gap 11 BUN 31 H Creatinine 1.66 H Est Cr Clr Drug Dosing 46.6 Est GFR ( Amer) 45.4 Est GFR (Non-Af Amer) 39.2 BUN/Creatinine Ratio 18.7 Glucose 158 H POC Glucose Calcium 9.4 Magnesium 1.2 L Total Bilirubin 3.2 H AST 36 ALT 29 Alkaline Phosphatase 72 Troponin I High Sens 36.5 H D Total Protein 7.4 Albumin 4.0 Globulin 3.4 Albumin/Globulin Ratio 1.2 TSH 13.260 H Free T4 0.81 SARS-CoV-2, RNA, NAAT 04/20/22 04/20/22 04/20/22 03:50 09:16 12:58 WBC RBC Hgb Hct MCV MCH MCHC RDW Std Deviation RDW Coeff of Nuris Plt Count MPV Immature Gran % (Auto) Neut % (Auto) Lymph % (Auto) [place] % (Auto) Eos % (Auto) Baso % (Auto) Neut # (Auto) Lymph # (Auto) [place] # (Auto) Eos # (Auto) Baso # (Auto) Immature Gran # (Auto) Platelet Estimate PT INR APTT PTT Ratio Sodium Potassium Chloride Carbon Dioxide Anion Gap BUN Creatinine Est Cr Clr Drug Dosing Est GFR ( Amer) Est GFR (Non-Af Amer) BUN/Creatinine Ratio Glucose POC Glucose 219 H Calcium Magnesium Total Bilirubin AST ALT Alkaline Phosphatase Troponin I High Sens 35.3 H Total Protein Albumin Globulin Albumin/Globulin Ratio TSH Free T4 SARS-CoV-2, RNA, NAAT NEGATIVE 04/20/22 16:00 WBC RBC Hgb Hct MCV MCH MCHC RDW Std Deviation RDW Coeff of Nuris Plt Count MPV Immature Gran % (Auto) Neut % (Auto) Lymph % (Auto) [place] % (Auto) Eos % (Auto) Baso % (Auto) Neut # (Auto) Lymph # (Auto) [place] # (Auto) Eos # (Auto) Baso # (Auto) Immature Gran # (Auto) Platelet Estimate PT 13.3 H INR 1.3 H APTT 25.5 PTT Ratio 0.9 Sodium Potassium Chloride Carbon Dioxide Anion Gap BUN Creatinine Est Cr Clr Drug Dosing Est GFR ( Amer) Est GFR (Non-Af Amer) BUN/Creatinine Ratio Glucose POC Glucose Calcium Magnesium Total Bilirubin AST ALT Alkaline Phosphatase Troponin I High Sens Total Protein Albumin Globulin Albumin/Globulin Ratio TSH Free T4 SARS-CoV-2, RNA, NAAT Diagnostic Findings Chest x-ray obtained on admission revealed cardiomegaly with pulmonary vascular congestion. Echocardiogram performed today revealed moderate to severely reduced LV systolic function with ejection fraction of 25-30%. Mildly dilated left ventricle. Moderately reduced right ventricular systolic function. Biatrial enlargement. No significant valvular heart disease. ECG Additional Comments: EKG obtained the time admission revealed atrial fibrillation with rapid ventricular response. Incomplete right bundle branch block. Low voltage overall. PG Care Time/CCT Total # of Minutes Spent Total Time Spent with Patient: Total time spent is greater than 50% in coordination of care (as documented) at patient's floor/unit and/or counseling patient: Coding Level of Care Code 24209 Initial Inpt Care Lvl 3 Diagnoses Elevated troponin R77.8 Atrial fibrillation with RVR I48.91 Cardiomyopathy I42.9 Congestive heart failure I50.9
[2022-04-20] MEDS: METOPROLOL TARTRATE 25 MG TAB PO SCH ×2 (18:17→22:54)
[2022-04-20] MEDS ORDERED: LANTUS PER UNIT CHARGE SQ SCH (21:00)
--- NOTE | 2022-04-20 21:49 | Communication Note ---
Date of Service: April 20, 2022 Patient was seen and examined although admitted the same day therefore not be billing for this encounter. Patient seen around 1:30 PM. No significant improvement since admission. LVEF 25 to 30% on TTE. Will consult cardiology regarding cardiomyopathy. Heart rate around 100 bpm at rest, will defer rate control to cardiology. Discussed with Dr Lucas. No immediate plan on cardiac catheterization. Will start on heparin IV drip without bolus. Liver cirrhosis or previous imaging -labs consistent with this including platelets 68, INR 1.3, bilirubin 3.2. Will get abdo limited US to assess for ascites to see if he would benefit more from spironolactone as a diuretic.
[2022-04-20 22:43] LABS: INR 1.3 (0.9-1.1); Partial Thromboplastin Ratio 1.5; Partial Thromboplastin Time 42.4 Seconds (21.0-31.0); Prothrombin Time 13.9 Seconds (9.0-12.0)
[2022-04-21 03:30] LABS: Appearance Urine Clear (Clear); Bacteria Urine Automated Negative (Negative); Blood Urine Negative (Negative); Color Urine Orange; Glucose Urine UA Negative (Negative); Ketones Urine Trace (Negative); Leukocyte Esterase Urine Trace (Negative); Nitrite Urine Negative (Negative); Protein Urine 2+ (Negative); RBC Urine Automated 0-4 /hpf (0-4); Specific Gravity Urine 1.015 (1.000-1.030); Urobilinogen Urine Negative (Negative); pH Urine 5.5 (4.5-7.5)
[2022-04-21 03:35] LABS: Bilirubin Urine 1+ (Negative)
[2022-04-21] MEDS: INSULIN ASPART PER UNIT SC SCH ×3 (04:10→13:09)
[2022-04-21 04:25] LABS: Cast Urine Automated >30 /lpf (0-5)
[2022-04-21] MEDS: METOPROLOL TARTRATE 25 MG TAB PO SCH ×2 (05:12→12:22)
[2022-04-21 05:58] LABS: Albumin Globulin Ratio 1.2 (0.9-2); Albumin Level 3.7 gm/dl (3.4-5.0); BUN Creatinine Ratio 18.9 (10-20); Est GFR (African American) 41.2 ml/min; Est GFR (Non-African American) 35.5 ml/min; Magnesium 1.6 mg/dl (1.7-2.4); Potassium 4.8 mmol/L (3.5-5.1); Total Protein 6.7 gm/dl (6.0-8.3)
[2022-04-21 06:12] LABS: Partial Thromboplastin Ratio > 5.1
[2022-04-21 06:24] LABS: Partial Thromboplastin Time > 139.0 Seconds (21.0-31.0)
[2022-04-21 06:37] LABS: Basophils # (auto) 0.03 K/uL (0-0.2); Basophils % (auto) 0.8 %; Echinocytes 1+; Eosinophils % (auto) 2.8 %; Lymphocytes # (auto) 0.73 K/uL (1.2-3.4); Lymphocytes % (auto) 20.2 %; Macrocytosis Present; Monocytes # (auto) 0.45 K/uL (0.24-0.82); Monocytes % (auto) 12.4 %; Neutrophils # (auto) 2.31 K/uL (1.4-6.5); Neutrophils % (auto) 63.8 %; Platelet Estimate Decreased (Normal)
[2022-04-21 06:38] LABS: Hematocrit (blood only) 33.8 % (40.1-51.0); Mean Corpuscular Hemoglobin 39.7 pg (25.0-34.0); Mean Corpuscular Hgb Conc 35.5 g/dL (32.0-36.0); Mean Corpuscular Volume 111.9 fL (80.0-100.0); Mean Platelet Volume 11.3 fL (9.4-12.4); Platelet Count 61 K/uL (130-400); RDW Coefficient of Variation 14.7 % (11.5-14.5); RDW Standard Deviation 59.1 fL (36.4-46.3); Red Blood Count 3.02 M/uL (4.63-6.08); White Blood Count 3.62 K/ul (4.8-10.8)
[2022-04-21 07:46] LABS: Estimated Average Glucose 148 mg/dl; Hemoglobin A1C 6.8 % (4.5-5.6)
[2022-04-21 07:48] LABS: Partial Thromboplastin Ratio 4.8
[2022-04-21 07:57] LABS: Partial Thromboplastin Time 131.8 Seconds (21.0-31.0)
[2022-04-21 08:07] LABS: Partial Thromboplastin Ratio 2.9
[2022-04-21 08:11] LABS: Partial Thromboplastin Time 80.6 Seconds (21.0-31.0)
--- NOTE | 2022-04-21 09:36 | Ultrasound Report ---
US abdomen ltd ascites HISTORY: 76 years-old Male assess for ascites follow-up study in a patient with abdominal ascites COMPARISON: CT abdomen and pelvis 10/03/2021 TECHNIQUE: Multiple real-time sonographic images of the abdomen were obtained assessing grayscale amberly earance and color flow FINDINGS/IMPRESSION: Abdominal varicosities with cirrhotic liver redemonstrated. Splenomegaly. There is only a small amoun t of abdominal ascites present. ACT 112: Negative or not required by law. The above report was generated using voice recognition software. It may contain grammatical, syntax o r spelling errors. Electronically signed by: Sadiq Forrest M.D. 04/21/2022 9:34 AM
[2022-04-21] MEDS: ATORVASTATIN 10 MG TAB PO SCH (09:48)
[2022-04-21] MEDS: PANTOprazole 40 MG TAB PO SCH (09:48)
[2022-04-21] MEDS: LEVOTHYROXINE SODIUM 125 MCG TABLET PO SCH (09:48)
[2022-04-21] MEDS: CHOLECALCIFEROL 1,000 UNITS 25 MCG TAB PO SCH (09:48)
[2022-04-21] MEDS: busPIRone 5 MG TAB PO SCH (09:48)
[2022-04-21] MEDS: MAGNESIUM SULFATE / D5W 1 GM/100 ML BAG IV SCH ×2 (09:51→11:35)
[2022-04-21] MEDS ORDERED: APIXABAN 5 MG TABLET PO SCH (11:00)
--- NOTE | 2022-04-21 13:14 | Discharge Summary ---
Date of Service April 21, 2022 Admission HPI Per Admitting Provider The patient is a 76-year-old male with a past medical history including atrial fibrillation, hypertension, macrocytic anemia, gross hematuria, pulmonary nodule, subarachnoid hemorrhage, hypertension, as well as type II uncontrolled, dyslipidemia, hypothyroidism, obesity, liver cirrhosis, thrombocytopenia, depression with anxiety, asthma and hepatic steatosis. He reports that he has a bag of pills he is not sure what they are for but he has not taken any in a while. He reports his legs are usually swollen, and the way they are now is by the way they usually are. He does not particularly watch his diet is for salt intake. He reports that he typically does sits around a lot at home does To physical activity and therefore does not get short of breath or dyspnea. Principal Diagnosis Atrial fibrillation with rapid ventricular rate Acute renal failure Discharge Exam Constitutional WD/WN, vitals as above Respiratory normal respiratory effort Auscultation: + diminished lung sounds (bibasal); no crackles and no wheezes Cardiovascular Rate/Rhythm: regular rate and + irregularly irregular Heart Sounds: no murmur Extremities: + pedal edema (2+ bilateral edema equal) Gastrointestinal (Abdomen) normal bowel sounds, soft, nontender, no hepatosplenomegaly Skin no rashes, warm and dry Neurologic moves all extremities and awake; not confused Psychiatric A+Ox3, euthymic affect Discharge Data Allergies Allergy/AdvReac Type Severity Reaction Status Date / Time lisinopril AdvReac Mild Erectile Verified 11/04/21 13:22 Dysfunction Consultations 04/20/22 05:20 ED Decision to Admit Stat 04/20/22 13:46 Consult Cardiology Routine Ordered Studies 04/20/22 13:52 US abdomen ltd ascites Routine FINDINGS/IMPRESSION: Abdominal varicosities with cirrhotic liver redemonstrated. Splenomegaly. There is only a small amount of abdominal ascites present. Hospital Course (1) Atrial fibrillation with RVR: Vijay Mares is a 76 year old male admitted to [facility] from April 20 - 2021 due to shortness of breath. He was diagnosed with atrial fibrillation with rapid ventricular rate. This was rate controlled with metoprolol tartrate 25mg q6h during his inpatient stay. We will switch him to his usual metoprolol succinate on discharge but increase the dose to 50mg PO BID. He has prior his today of subarachnoid hemorrhage however most recent CT head in February showed no intracranial abnormality therefore anticoagulation was started over night with intravenous heparin and then Eliquis on discharge. I doubt he is taking his diabetes medications as outpatient prescription of Lantus is 60 units BID. He received no long acting insulin during his inpatient stay and glucose on day of discharge 132-143. However HbA1C was 6.8 therefore he was advised to continue doing whatever he has been doing as long as he isn't having hypoglycemic episodes. He was advised to follow up with gastroenterology regarding his liver cirrhosis. Mr Mares left against medical advice with his Creatinine increasing. I suspect his worsening Cr was due to Lasix given on day of admission which was not continued but I explained the risk of worsening renal failure, dialysis and . He wished to leave against medical advice and demonstrated adequate understanding and capacity to make his own poor medical decisions. (2) Acute kidney injury: (3) Dyslipidemia: (4) Diabetes type 2, uncontrolled: (5) Hypothyroidism: (6) Cirrhosis of liver: (7) Thrombocytopenia: (8) Asthma: (9) Hepatic steatosis: (10) Hypertension: (11) Elevated troponin: (12) Depression with anxiety: (13) Subarachnoid hemorrhage: Total Time Total Time Spent Total Time Spent (In Minutes): 50 Discharge Plan Discharge Items Patient Disposition: Against Medical Advice Reason For Visit: ATRIAL FIB WITH RVR, HYPOMAGNESIUM Discharge Diagnosis: Atrial fibrillation with rapid ventricular rate Activity: Resume your previous activity Non-emergency contact: Primary Care Provider Call non-emergency contact if: you have any medication questions and your symptoms worsen Follow-up/Referrals: Ramakrishna Lozoya, [Primary Care Provider] - Diet: Carb Consistent or DM2, Heart Healthy and Low Sodium (2gm) Addtl Attending Provider Instructions: Please take all medications as prescribed. Stop losartan due to acute kidney injury. Increase metoprolol for better heart rate control. Start Eliquis for stroke risk reduction. Pending Studies at Discharge: No Stand-Alone Forms: My [employer], Smoking Cessation Medications and DC Order Prescriptions: New Eliquis 5 mg Tablet 5 mg PO BID Qty: 60 0RF metoprolol succinate 50 mg tablet extended release 24 hr 50 mg PO BID Qty: 60 0RF Continued fluticasone propionate 50 mcg/actuation spray,suspension 2 spray intranasal DAILY PRN (Reason: allergy symptoms) Qty: 16 2RF (DME) Contour Test Strips Strip See Rx Instructions .Route Qty: 100 3RF Rx Instructions: TEST THREE TIMES A DAY (DME) FreeStyle Lite Strips Strip See Rx Instructions .Route Qty: 100 5RF Rx Instructions: Test 3 times daily dx E11.9 (DME) blood-glucose meter [FreeStyle Lite Meter] Kit See Rx Instructions .Route Qty: 1 0RF Rx Instructions: Test 3 times daily dx E11.9 (DME) lancets [FreeStyle Lancets] 28 gauge misc See Rx Instructions .Route Qty: 100 5RF Rx Instructions: Test 3 times daily Dx E11.9 Novolin R Regular U-100 Insuln 100 unit/mL solution 60 unit SQ BIDM Qty: 10 3RF Rx Instructions: or as directed per scale for blood glucose 90 day supply magnesium citrate 100 mg tablet 100 mg PO DAILY Qty: 30 0RF flaxseed oil 1,000 mg capsule 1,200 mg PO DAILY Rx Instructions: 1200 mg daily milk thistle 175 mg tablet 175 mg PO DAILY Qty: 60 0RF Rx Instructions: give with meal/snack omeprazole 20 mg capsule,delayed release(DR/EC) 20 mg PO DAILY Qty: 90 2RF atorvastatin 10 mg tablet 10 mg PO DAILY Qty: 90 3RF levothyroxine 125 mcg tablet 125 mcg PO DAILY Qty: 60 1RF (DME) insulin syringe-needle U-100 [BD Insulin Syringe Ultra-Fine] 1 mL 31 gauge x 5/16 syringe See Rx Instructions .ROUTE .COMPLEX Qty: 300 0RF Dose Instruction: USE UP TO 4 SYRINGES DAILY Rx Instructions: USE UP TO 4 SYRINGES DAILY metformin 1,000 mg tablet See Rx Instructions .ROUTE .COMPLEX Qty: 180 0RF Dose Instruction: Take 1 tablet by mouth twice daily Rx Instructions: Take 1 tablet by mouth twice daily multivitamin tablet 1 tab PO DAILY cholecalciferol (vitamin D3) 2,000 unit capsule 2,000 units PO DAILY Lantus U-100 Insulin 100 unit/mL solution 60 units SQ BID Qty: 140 5RF buspirone 10 mg tablet 10 mg PO BID Qty: 180 3RF albuterol sulfate 90 mcg/actuation HFA aerosol inhaler 1 - 2 puff inhalation Q4H PRN (Reason: SHORT OF BREATH) Qty: 8.5 3RF Discontinued losartan 25 mg tablet 25 mg PO DAILY Qty: 90 3RF metoprolol succinate 25 mg tablet extended release 24 hr 25 mg PO DAILY Qty: 30 2RF Discharge Orders: Left Against Medical Advice (Routine); Ordered 04/21/22 Ordered By: Silvestre Ortiz/Other Patient Handouts: Managing Type 2 Diabetes Admission Data Admit Date/Time: 04/20/22 06:36 Attending Provider: Silvestre Kiser Admit Provider: Ricci Jimenez Primary Care Provider: Ramakrishna Lozoya Other Providers: Ricci Jimenez ; Sukh Lucas Coding Level of Care Code D/C DAY MANAGEMENT >30 MINS Diagnoses Atrial fibrillation with RVR I48.91 Acute kidney injury N17.9 Dyslipidemia E78.5 Diabetes type 2, uncontrolled E11.65 Glycemic state: with hyperglycemia Hypothyroidism E03.9 Cirrhosis of liver K74.60 Ascites presence: unspecified Hepatic cirrhosis type: unspecified hepatic cirrhosis Thrombocytopenia D69.6 Asthma J45.909 Hepatic steatosis K76.0 Hypertension I10 Elevated troponin R77.8 Depression with anxiety F41.8 Subarachnoid hemorrhage I60.9
== END 2022-04-21 13:54 | disposition left against medical advice (07) ==
LOC: ED 03:16 → EDINP 03:16 → SUATTDRO 06:36 → 4W 08:48